=== PATIENT | female | born 1955 | race Caucasian/White ===

== ENCOUNTER → 2017-10-15 10:44 | Outpatient (CLI) | payer BC, SELFPAY | PROVIDERS: Family Provider Internal Medicine; PCP Internal Medicine; Visit Provider Obstetrics & Gynecology | DX: Z12.31 Encounter for screening mammogram for malignant neoplasm of breast (principal) | CPT/HCPCS: 77063; 77067 ==

== ENCOUNTER → 2018-11-19 13:42 | Outpatient (CLI) | payer BC, SELFPAY ==
[2018-10-21 14:23] VITALS: BMI 32.1
--- NOTE | 2018-11-19 13:45 | US_ITS ---
STUDY: THYROID ULTRASOUND REASON FOR EXAM: Female, 63 years old. Nontoxic goiter. TECHNIQUE: Ultrasound evaluation of the thyroid was performed with real-time and static garcia-scale imaging. COMPARISON: July 01, 2016. FINDINGS: RIGHT LOBE: The right lobe of the thyroid gland measures 5.0 x 1.9 x 1.4 cm. There is a homogeneous echotexture. There are multiple small lesions in the thyroid. There is a 0.7 x 0.4 x 0.7 cm spongiform nodule in the posterior aspect of the upper lobe. There are 2 smaller spongiform nodules in the lower pole measuring 0.5 x 0.2 x 0.5 cm and 0.6 x 0.5 x 0.3 cm. LEFT LOBE: The left lobe of the thyroid gland measures 4.4 x 1.6 x 1 point cm. There is a homogeneous echotexture. There are multiple nodules. There is a dictated cystic nodule in the lower pole measuring 0.9 x 0.5 x 0.9 cm. Also in the lower pole is a spongiform hypoechoic nodule measuring 1.2 x 0.4 x 0.6 cm. ISTHMUS: The isthmus measures 0.2 cm. The regional lymph nodes are normal. US/Thyroid IMPRESSION: Multiple bilateral thyroid nodules. These septated cystic structure in the lower pole left thyroid has mildly increased in size. The remainder of the nodules were not noted on the prior study and nodules noted on that study are not seen on the current exam. The most suspicious nodule is characterized by ACR TIRADS classification as a TR 2, not suspicious. Electronically Signed: Toni Grace DO at 20:56 EDT Tel [phone], Service support ,
== END ==
PROVIDERS: Family Provider Internal Medicine; PCP Internal Medicine; Referring Provider Internal Medicine; Visit Provider Internal Medicine
DX: E04.9 Nontoxic goiter, unspecified (principal)
CPT/HCPCS: 76536

== ENCOUNTER → 2018-11-26 16:21 | Outpatient (CLI) | payer BC, SELFPAY ==
[2018-10-21 14:23] VITALS: BMI 32.1
[2018-12-04 12:26] LABS: HPV Reflexed? NOT INDICATED
== END ==
PROVIDERS: Visit Provider Obstetrics & Gynecology
DX: Z12.4 Encounter for screening for malignant neoplasm of cervix (principal)
CPT/HCPCS: 88175; G0145

== ENCOUNTER → 2018-12-07 09:23 | Outpatient (CLI) | payer BC, SELFPAY ==
[2018-10-21 14:23] VITALS: BMI 32.1
[2018-12-01 14:10] VITALS: BMI 32.1
--- NOTE | 2018-12-07 09:25 | BI_ITS ---
MAMMOGRAPHY - BILATERAL DIAGNOSTIC REASON FOR EXAM: Female, 63 years old. PERTINENT HISTORY: Palpable nodular density in the inferior lateral aspect of the left breast TECHNIQUE: Digital examination. Mediolateral oblique (MLO) and craniocaudad (CC) views of both breasts were obtained. CAD: COMPARISON: Previous mammogram dated 10/15/2001 FINDINGS: Breast Composition: Scattered breast parenchyma is noted superimposed upon fatty degeneration of the breast bilaterally. There are no dominant masses or suspicious calcifications. In the inferior medial aspect the left breast the patient palpated 2 nodular densities. These will be further evaluated with a targeted left breast ultrasound. Targeted left breast ultrasound will be dictated on a separate report but showed 2 adjacent benign cyst at about the 3:00 position of the lateral left breast and in the second palpable area of normal breast parenchyma was seen. No other significant abnormalities are identified. No spiculated masses or cluster of calcifications identified. BI/DIAG MAMM W/CAD, BILAT IMPRESSION: A simple cyst was initially identified in the inferior aspect of the left breast, in this otherwise normal bilateral diagnostic mammogram Please see targeted left breast ultrasound report ASSESSMENT CATEGORY: FINAL ASSESSMENT: BI-RAD CATEGORY II (BENIGN FINDING) YEARLY MAMMOGRAPHY RECOMMENDED FOLLOW UP RECOMMENDATION: Ultrasound Recommended. (I) Approximately 10% of breast cancers are not detected by mammography. A normal mammogram should not delay biopsy of a clinically suspicious abnormality. Electronically Signed: Sami Arroyo, at 17:34 EDT Tel , Service support ,
--- NOTE | 2018-12-07 09:27 | US_ITS ---
STUDY: ULTRASOUND BREAST - LEFT REASON FOR EXAM: Female, 63 years old. TECHNIQUE: Axial and longitudinal images of the LEFT breast were performed with a high resolution ultrasound transducer. COMPARISON: Recent mammogram obtained on 12/07/2018 FINDINGS: LEFT Breast: Ultrasound was performed of the medial aspect of the left breast and compared with recent mammogram obtained on 12/07/2018. Initial palpable by the patient represents a subcutaneous lipoma. A 2.5 mm cyst is noted in the inferior lateral aspect of the left breast. This has through transmission. This represents a benign cyst. US/Breast Limited Unilateral IMPRESSION: 1 of the palpable lumps in the left breast represents a subcutaneous lipoma in the other along the left breast represents a tiny, 2.5 mm simple cyst. ASSESSMENT CATEGORY: BIRADS Category 2: Benign. A letter regarding these results will be sent to the patient by the facility within 30 days. Electronically Signed: Sami Arroyo, at 17:37 EDT Tel , Service support ,
== END ==
PROVIDERS: Family Provider Internal Medicine; PCP Internal Medicine; Referring Provider Obstetrics & Gynecology; Visit Provider Obstetrics & Gynecology
DX: N63.22 Unspecified lump in the left breast, upper inner quadrant (principal)
CPT/HCPCS: 76642; 77062; 77066; G0279

== ENCOUNTER → 2018-12-22 11:32 | Outpatient (CLI) | payer BC, SELFPAY ==
[2018-12-15 14:02] VITALS: BMI 32.1
--- NOTE | 2018-12-22 12:15 | EKG12_ITS ---
Test Reason : ROUTINE,HTN Blood Pressure : / mmHG Vent. Rate : 070 BPM Atrial Rate : 070 BPM P-R Int : 154 ms QRS Dur : 084 ms QT Int : 414 ms P-R-T Axes : 059 000 049 degrees QTc Int : 447 ms Normal sinus rhythm Normal ECG Confirmed by INA URIBE, KATIE ([id number]), book editor DAGOBERTO JONES ([id number]) on 12/25/2018 10:47:32 AM Referred By: Denise Raphael Confirmed By:KATIE BUCKLEY MD
[2018-12-22 12:51] LABS: Absolute Lymphocyte Count 1.79 X10^3/uL (0.83-4.51); Absolute Neutrophil Count 6.1 X10^3/uL (2.0-7.7); Basophil# 0.03 X10^3/uL; Basophil% 0.4 % (0-1); Eosinophil# 0.21 X10^3/uL; Eosinophils% 2.5 % (0-5); Hematocrit 39.3 % (37-47); Hemoglobin 12.5 g/dL (12.0-15.0); Lymphocyte # 1.79 X10^3/ul (4.0); Lymphocyte % 20.9 % (19-41); Mean Corp Hgb Conc 31.8 g/dL (32-36); Mean Corpuscular Hgb 27.8 pg (27.0-32.0); Mean Corpuscular Volume 87.3 fL (81-99); Mean Platelet Vol. 9.9 fl (6.2-12.0); Monocyte# 0.41 X10^3/uL; Monocyte% 4.8 % (0-10); NRBC Flagged by Analyzer 0 % (0-5); Neutrophil # 6.09 X10^3/uL (2.7-7.7); Neutrophil % 71.2 % (47-70); Platelet Count 306 K/mm3 (150-450); RBC Distribution Width CV 13.2 % (11.6-14.6); RBC Distribution Width SD 42.1 fl (35.1-43.9); White Blood Count 8.6 K/mm3 (4.4-11.0)
[2018-12-22 13:17] LABS: AST(SGOT) 16 U/L (15-37); Alanine Aminotransfer ALT/SGPT 27 U/L (13-56); Albumin, Serum 3.6 g/dL (3.2-5.0); Alkaline Phosphatase 98 U/L (45-117); Anion Gap 6 (5-15); BUN 21 mg/dL (7-18); BUN/Creat Ratio 21.5 RATIO (10-20); Calcium,Total 9.3 mg/dL (8.5-10.1); Chloride 103 mmol/L (98-107); Cholesterol 181 mg/dL (200); Creatinine, Serum 0.98 mg/dL (0.55-1.02); EST Glomerular Filtration Rate 61 mL/min (>60); Est Glom Filt Rate - Afr Amer 74 mL/min (>60); Globulin 3.6 g/dL (2.2-4.2); Glucose 82 mg/dL (74-106); High Density Lipoprotein 69 mg/dL; Potassium 3.4 mmol/L (3.5-5.1); Protein, Total 7.2 g/dL (6.4-8.2); Sodium Level 139 mmol/L (136-145); Triglycerides 69 mg/dL; Very Low Density Lipoprotein 14 mg/dL (5-40)
[2018-12-22 14:08] LABS: T4 Total, Thyroxin 11.5 ug/dL (4.8-13.9); Thyroid Stim Hormone (TSH) 1.46 uIU/mL (0.358-3.74)
== END ==
LOC: BIMLAB 11:32 → CVS 12:14
PROVIDERS: Surgery; Family Provider Internal Medicine; PCP Internal Medicine; Referring Provider Internal Medicine; Visit Provider Internal Medicine
DX: I10 Essential (primary) hypertension (principal); E79.0 Hyperuricemia without signs of inflammatory arthritis and tophaceous disease; E04.2 Nontoxic multinodular goiter
CPT/HCPCS: 80053; 80061; 84436; 84443; 84550; 85025; 93005

== ENCOUNTER → 2019-08-23 13:30 | Outpatient (CLI) | payer BC, SELFPAY ==
[2019-08-12 11:25] VITALS: BMI 32.1
--- NOTE | 2019-08-23 13:32 | BI_ITS ---
MAMMOGRAPHY - BILATERAL DIAGNOSTIC REASON FOR EXAM: Female, 64 years old. Nipple discharge PERTINENT HISTORY: Mother, maternal and paternal aunts with breast cancer TECHNIQUE: Digital examination. Mediolateral oblique (MLO) and craniocaudad (CC) views of both breasts were obtained along with 3-D tomosynthesis. CAD: CAD was performed on this study. COMPARISON: 12/07/2018 FINDINGS: Breast Composition: There are scattered areas of fibroglandular density. There are no dominant masses or suspicious calcifications. No other significant abnormalities are identified. However, because the patient complains of palpable nipple discharge in the right breast further evaluation of the right breast with ultrasound in the retroareolar region is recommended. BI/DIAG MAMM W/CAD, BILAT IMPRESSION: Further ultrasonographic evaluation recommended, as described above. Recall Side: Right Breast ASSESSMENT CATEGORY: BIRADS Category 0: Incomplete. Need additional imaging evaluation. A letter regarding these results will be sent to the patient by the facility within 30 days. FOLLOW UP RECOMMENDATION: Ultrasound Recommended. (I) Approximately 10% of breast cancers are not detected by mammography. A normal mammogram should not delay biopsy of a clinically suspicious abnormality. Electronically Signed: Bal Perez MD at 15:41 EDT , Service support ,
--- NOTE | 2019-08-23 13:32 | US_ITS ---
STUDY: ULTRASOUND BREAST - RIGHT REASON FOR EXAM: Female, 64 years old. Nipple discharge TECHNIQUE: Axial and longitudinal images of the RIGHT breast were performed with a high resolution ultrasound transducer. # OF IMAGES: 25 COMPARISON: None. FINDINGS: RIGHT Breast: Sonographic evaluation of the right breast, in the area of concern shows only normal dense fibroglandular tissue. There is no suspicious shadowing solid lesion, architectural distortion or clustered calcifications. US/Breast Limited Unilateral IMPRESSION: No suspicious sonographic findings ASSESSMENT CATEGORY: BIRADS Category 1: Negative. A letter regarding these results will be sent to the patient by the facility within 30 days. Electronically Signed: Bal Perez MD at 14:52 EDT , Service support ,
== END ==
PROVIDERS: PCP Internal Medicine; Referring Provider Obstetrics & Gynecology; Visit Provider Obstetrics & Gynecology
DX: N63.0 Unspecified lump in unspecified breast (principal)
CPT/HCPCS: 76642; 77062; 77066; G0279

== ENCOUNTER 2019-10-22 08:56 | Day surgery (SDC) | payer BC, SELFPAY ==
[2019-08-26 10:14] VITALS: BMI 31.9
[2019-10-04 05:54] VITALS: BMI 32.7
--- NOTE | 2019-10-15 12:01 | EKG12_ITS ---
Test Reason : PREOP Blood Pressure : / mmHG Vent. Rate : 063 BPM Atrial Rate : 063 BPM P-R Int : 156 ms QRS Dur : 078 ms QT Int : 410 ms P-R-T Axes : 052 -02 053 degrees QTc Int : 419 ms Normal sinus rhythm Normal ECG Confirmed by MARCELINO CHEW ([id number]), editor dictionary TIEN RICE ([id number]) on 10/18/2019 2:22:52 PM Referred By: Tulio Loza Confirmed By:MARCELINO CHEW
[2019-10-15 12:56] LABS: Hematocrit 39.4 % (37-47); Hemoglobin 12.4 g/dL (12.0-15.0); Mean Corp Hgb Conc 31.5 g/dL (32-36); Mean Corpuscular Hgb 27.1 pg (27.0-32.0); Mean Platelet Vol. 9.8 fl (6.2-12.0); Platelet Count 348 K/mm3 (150-450); RBC Distribution Width SD 40.5 fl (35.1-43.9); Red Blood Count 4.58 M/mm3 (4.2-5.4); White Blood Count 8.9 K/mm3 (4.4-11.0)
[2019-10-15 13:17] LABS: Anion Gap 7 (5-15); BUN 22 mg/dL (7-18); BUN/Creat Ratio 20.8 RATIO (10-20); Calcium,Total 9.1 mg/dL (8.5-10.1); Chloride 101 mmol/L (98-107); Creatinine, Serum 1.06 mg/dL (0.55-1.02); EST Glomerular Filtration Rate 55 mL/min (>60); Est Glom Filt Rate - Afr Amer 67 mL/min (>60); Glucose 84 mg/dL (74-106); Potassium 3.3 mmol/L (3.5-5.1); Sodium Level 139 mmol/L (136-145)
[2019-10-22] VITALS (7 sets, daily range): BP systolic 125–138; BP diastolic 63–81; PULSE 70–86; RESP 16–18; TEMP 36.1–36.4; O2SAT 97–100; BMI 32.9
--- NOTE | 2019-10-22 | BRBX_PTH ---
PATIENT: ANA SELF [place]: [facility] [place] [facility] [place][id number] AGE/SX: 64/F ROOM: RE10/22/[address]: Dr. Tulio Loza MD : 1955 BED: DIS: 10/22/2019 SPEC #: [id number] RECD: 10/22/19 12:10 STATUS: MARJAN RENeftali #: [id number] ZEYAD: 10/22/19 00:[address]: Tulio Loza DEPT: SURGICAL PATHOLOGY RECD BY: Aston Reid ENTERED: 10/22/19 12:10 SP TYPE: BREAST BX OTHR DR: Dr. Denise Raphael MD Tissues: Right breast, NOS Procedures: Surgery Specimen Level V HEADER OPERATION: Breast ductal exploration with excisional biopsy PRE-OP DIAGNOSIS: Nipple discharge, lipoma of breast TISSUE SUBMITTED: Right breast tissue MICROSCOPIC DIAGNOSIS Right breast tissue, ductal exploration with excisional biopsy: Intraductal papilloma. Focal florid intraductal hyperplasia without atypia. Negative for malignancy. ROMA:rosemary 10/27/19 COMMENT Case has been reviewed in consultation with Dr. Macias who concurs with the above diagnosis. IDC:AM MICROSCOPIC DESCRIPTION Slides are reviewed. GROSS DESCRIPTION Received in fixative is one container labeled with the patient's name and designated right breast tissue. The specimen consists of a piece of fibroadipose tissue measuring 5 x 2.5 x 1.5 cm. The specimen is not further oriented. The specimen is inked, serially sectioned and reveal yellow adipose cut surfaces mixed with scant fibrous areas. Dye Beck Reel Operator sections are submitted in four cassettes. / ROMA:rosemary 10/25/19 The rest of the specimen is submitted in five more cassettes, 5-9. / ROMA:rosemary 10/26/19 TC:1 CPT: 54525
[2019-10-22 09:28] LABS: Potassium 3.7 mmol/L (3.5-5.1)
[2019-10-22] MEDS: Lactated Ringers 1,000 ML 100 ML IV (09:46)
--- NOTE | 2019-10-22 10:14 | HP.PCM_ITS ---
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 Is patient in pain?: No Allergies tramadol Adverse Reaction (Severe, Verified 10/04/19 13:18) Headache omeprazole Adverse Reaction (Intermediate, Verified 10/04/19 13:18) Nausea Medications chromium 200 mcg tablet 600 mcg PO DAILY tab 11/18/17 [History Confirmed 10/04/19] timolol 0.5 %-dorzolamide 2 %-latanprost 0.005 % (PF) eye drops drp OPHTHALMIC 11/18/17 [History Confirmed 10/04/19] vitamin B complex 1 cap PO DAILY 11/18/17 [History Confirmed 10/04/19] triamterene 37.5 mg-hydrochlorothiazide 25 mg capsule 1 cap PO DAILY #90 cap 05/10/19 [Rx Confirmed 10/04/19] esomeprazole magnesium 20 mg capsule,delayed release 20 mg PO DAILY #90 cap 08/12/19 [Rx Confirmed 10/04/19] naproxen 500 mg tablet 500 mg PO BID PRN #90 tab 08/12/19 [Rx Confirmed 10/04/19] ascorbic acid (vitamin C) 500 mg capsule 500 mg PO QDAY cap 08/26/19 [History Confirmed 10/04/19] estradiol 0.5 mg tablet 0.5 mg PO DAILY 08/26/19 [History Confirmed 10/04/19] Is last menstrual period known: No Post menopausal: Yes Patient : No PFSH Medical History Multiple thyroid nodules (Acute) Lipoma of breast (Acute) Cyst of breast (Acute) GERD (gastroesophageal reflux disease) (Chronic) Migraines (Chronic) Degenerative disc disease (Chronic) Hiatal hernia (Chronic) Menieres disease (Chronic) Thyroid nodule (Chronic) Anemia (Chronic) Right foot pain (Chronic) Goiter (Chronic) Fibromyalgia (Chronic) Glaucoma (Chronic) Hypertension (Chronic) Surgical History History of cholecystectomy (Acute) History of foot surgery (Acute) History of hysterectomy (Acute) History of rotator cuff surgery (Acute) History of tubal ligation (Acute) Family History Father Hypertension Heart disease Glaucoma Diabetes Brother Diabetes Myocardial infarction Mother Breast cancer Diabetes Hypertension Grandfather Myocardial infarction Grandfather Myocardial infarction Social History (Updated 10/04/19 @ 13:[address] Tulio Loza MD) Smoking Status: Never smoker alcohol intake: never substance use type: does not use what type of physical activity do you participate in: walking HPI HPI HPI: ANA SELF, is a 64 F who presents to the office today for ongoing discussion regarding right nipple discharge. My previous office notes reflect the following. Intake Visit Reasons: RIGHT BREAST DISCHARGE/ MAMM 08/22 [facility] Chief Complaint: Chronic diarrhea , Phone only visit Allergies tramadol Adverse Reaction (Severe, Verified 08/26/19 10:14) Headache omeprazole Adverse Reaction (Intermediate, Verified 08/26/19 10:14) Nausea Medications chromium 200 mcg tablet 600 mcg PO DAILY tab 11/18/17 [History Confirmed 08/26/19] timolol 0.5 %-dorzolamide 2 %-latanprost 0.005 % (PF) eye drops drp OPHTHALMIC 11/18/17 [History Confirmed 08/26/19] vitamin B complex 1 cap PO DAILY 11/18/17 [History Confirmed 08/26/19] triamterene 37.5 mg-hydrochlorothiazide 25 mg capsule 1 cap PO DAILY #90 cap 05/10/19 [Rx Confirmed 08/26/19] esomeprazole magnesium 20 mg capsule,delayed release 20 mg PO DAILY #90 cap 08/12/19 [Rx Confirmed 08/26/19] naproxen 500 mg tablet 500 mg PO BID PRN #90 tab 08/12/19 [Rx Confirmed 08/26/19] ascorbic acid (vitamin C) 500 mg capsule 500 mg PO QDAY cap 08/26/19 [History Confirmed 08/26/19] estradiol 0.5 mg tablet 0.5 mg PO DAILY 08/26/19 [History Confirmed 08/26/19] [facility] Medical History Multiple thyroid nodules (Acute) Lipoma of breast (Acute) Cyst of breast (Acute) GERD (gastroesophageal reflux disease) (Chronic) Migraines (Chronic) Degenerative disc disease (Chronic) Hiatal hernia (Chronic) Menieres disease (Chronic) Thyroid nodule (Chronic) Anemia (Chronic) Right foot pain (Chronic) Goiter (Chronic) Fibromyalgia (Chronic) Glaucoma (Chronic) Hypertension (Chronic) Surgical History History of cholecystectomy (Acute) History of foot surgery (Acute) History of hysterectomy (Acute) History of rotator cuff surgery (Acute) History of tubal ligation (Acute) Family History Father Hypertension Heart disease Glaucoma Diabetes Brother Diabetes Myocardial infarction Mother Breast cancer Diabetes Hypertension Grandfather Myocardial infarction Grandfather Myocardial infarction Social History (Updated 08/26/19 @ 10:[address] Tulio Loza MD) Smoking Status: Never smoker alcohol intake: never substance use type: does not use what type of physical activity do you participate in: walking HPI HPI HPI: ANA SELF, is a 64 F who presents to the office today for My previous notes of December 15, 2018 reflect the following: The patient also on breast examination has had a long-term history of a medial left breast mass. Clinically and on imaging this is very much consistent with a subcutaneous lipoma. It is asymptomatic no treatment required. On current ultrasound imaging there is a diminutive 2.5 mm lower outer left breast cyst. No treatment indicated. Routine screening annual mammogram recommended A final note is that the patient has a family history with a first-degree relative with breast cancer i.e. her mother. The patient remains on estrogen replacement therapy and states that she is dependent upon this because of emotional health issues. I recommend genetic counseling to evaluate the risk benefit and options. On this occasion the patient presents with a several week history of intermittent clear discharge from her right nipple. She will awaken at night with crusty nests on her clothing on the right. She has not noticed any blood. There is been no tenderness. As noted below her mammogram and ultrasound imaging were unremarkable. [facility] Imaging Services [address] [place] [address] DIAG MAMM W/CAD, BILAT MR#: [id number] Name: ANA SELF [facility] #:[id number] : 1955F 64 From: Alexi Perez MD PCP:Dr. Denise Raphael MD Status:REG CLI Study:DIAG MAMM W/CAD, BILAT Date of Exam:08/23/19 Exam#[id number] Ordering Dr: Sami Law MD MAMMOGRAPHY - BILATERAL DIAGNOSTIC REASON FOR EXAM: Female, 64 years old. Nipple discharge PERTINENT HISTORY: Mother, maternal and paternal aunts with breast cancer TECHNIQUE: Digital examination. Mediolateral oblique (MLO) and craniocaudad (CC) views of both breasts were obtained along with 3-D tomosynthesis. CAD: CAD was performed on this study. COMPARISON: 12/07/2018 FINDINGS: Breast Composition: There are scattered areas of fibroglandular density. There are no dominant masses or suspicious calcifications. No other significant abnormalities are identified. However, because the patient complains of palpable nipple discharge in the right breast further evaluation of the right breast with ultrasound in the retroareolar region is recommended. BI/DIAG MAMM W/CAD, BILAT IMPRESSION: Further ultrasonographic evaluation recommended, as described above. Recall Side: Right Breast ASSESSMENT CATEGORY: BIRADS Category 0: Incomplete. Need additional imaging evaluation. A letter regarding these results will be sent to the patient by the facility within 30 days. FOLLOW UP RECOMMENDATION: Ultrasound Recommended. (I) Approximately 10% of breast cancers are not detected by mammography. A normal mammogram should not delay biopsy of a clinically suspicious abnormality. Electronically Signed: Bal Perez MD at 15:41 EDT , Service support , [facility] Imaging Services [address] [place] [address] Breast Limited Unilateral MR#: [id number] Name: ANA SELF [facility] #:[id number] : 1955F 64 From: Alexi Perez MD PCP:Dr. Denise Raphael MD Status:REG CLI Study:Breast Limited Unilateral Date of Exam:08/23/19 Exam#[id number] Ordering Dr: Sami Law MD STUDY: ULTRASOUND BREAST - RIGHT REASON FOR EXAM: Female, 64 years old. Nipple discharge TECHNIQUE: Axial and longitudinal images of the RIGHT breast were performed with a high resolution ultrasound transducer. # OF IMAGES: 25 COMPARISON: None. FINDINGS: RIGHT Breast: Sonographic evaluation of the right breast, in the area of concern shows only normal dense fibroglandular tissue. There is no suspicious shadowing solid lesion, architectural distortion or clustered calcifications. US/Breast Limited Unilateral IMPRESSION: No suspicious sonographic findings ASSESSMENT CATEGORY: BIRADS Category 1: Negative. A letter regarding these results will be sent to the patient by the facility within 30 days. Electronically Signed: Bal Perez MD at 14:52 EDT , Service support , HPI HPI HPI: ANA SELF, is a 64 F who presents to the office today for Exam Const General: cooperative, comfortable, no acute distress Orientation: alert, awake HENMT Head: normal to inspection Chest Other: Right breast: No focal mass. No axillary or clavicular adenopathy, clear right nipple discharge emanating from 1 o'clock position Left breast: Rubbery fibrous mass inner left breast 10 o'clock position. No distortion. No retraction. No nipple discharge. No axillary or clavicular adenopathy Resp Effort & Inspection: normal respiratory effort Auscultation: clear to auscultation bilaterally Cardio Rate: regular rate Rhythm: regular rhythm GI Palpation: no hepatosplenomegaly Neuro Cognition: normal cognition Extrem General: no calf tenderness Assessment & Plan Problems 1. Nipple discharge N64.52 2. Lipoma of breast D17.1 Plan Suspected chronic lipoma in her left breast. No clinical changes and no treatment recommended New onset clear right nipple discharge. Unremarkable right mammogram and ultrasound. I proposed with the patient a right breast ductal exploration with excisional biopsy and in detail I discussed the technique, benefit, risk, alternatives. The patient states that her has upcoming cardiac surgery. She would like to delay a period of time until he has a chance to recover. We did discuss the risks and benefit of that decision. My current clinical impression is likely an intraductal papilloma. We will send the patient a recall letter in 2 months. She is aware that I would propose that she would proceed with surgery within 6 weeks to 3 months. I appreciate the opportunity of assisting with her surgical care. Cc: Dr. Sami Law and Dr.Efewongbe Donavon Loza M.D., F.A.C.S. HPI HPI HPI: ANA SELF, is a 64 F who presents to the office today for ROS General General: Yes fatigue; no weight change, appetite, colon cancer, breast cancer or weakness HEENT HEENT: Yes difficulty swallowing; no eye injury, eye surgery, swollen glands or hoarseness Endo Endocrine: No thyroid disease, diabetes mellitus, thyroid cancer, Hair loss, heat intolerance or cold intolerance Skin Skin: No rash or changing moles Breast Breast: No left breast lump, right breast lump, nipple discharge, breast pain, abnormal mammogram, abnormal US or breast enlargement Musc Musculoskeletal: Yes back problems and arthritis; no rheumatoid arthritis, gout or joint pain Cardio Cardiovascular: Yes high blood pressure; no murmur, pacemaker, heart disease, atrial fibrillation, heart attack, heart stent, palpitations, shortness of breat with exertion or chest pain Psych Psychiatric: No depression, anxiety or hearing voices Resp Respiratory: No shortness of breath, No sleep apnea, No cough, No COPD, No asthma, No emphysema, No wheezing Gastro Gastrointestinal: No abdominal pain, No nausea or vomiting, No diarrhea, No constipation, No blood in stool, No acid reflux, No hemorrhoids, No ulcers, No gallbladder problem, No black,tarry stools Baudilio Hematologic: No blood thinners, No blood disorders, No bleeding, No anemia, No blood clots Neuro Neurologic: No weakness Exam Chest Breast Palpation: No nipple discharge Cardio Heart Sounds: no murmurs Assessment & Plan Problems 1. Nipple discharge N64.52 Plan Ongoing right breast nipple discharge. The patient states her has successfully undergone heart surgery and is now stable allowing her to proceed with her surgical intervention. Her health has remained constant. Physical exam unchanged. I again have proposed for her a right breast ductal exploration with excisional biopsy. She is aware of the technique, benefit, risk, alternatives. She has had an opportunity to ask and have questions answered. She is aware of the Covid-19 pandemic and that the [facility] is currently reporting a low local incidence. We will proceed at the time of her discretion. Copy: Dr. Denise Loza M.D., F.A.C.S. Coding Level of Care Code Off vis,est,level 2 Diagnoses Nipple discharge N64.52 I have re-examined the patient. There are no clinical changes since date of exam. Procedure Criteria Procedure Type: Elective COVID Risk Discussion: The surgeon/proceduralist and patient have discussed in detail the risk of exposure to and/or potential harm posed by the COVID-19 virus with having a surgery/procedure at this time versus the risk of delaying the surgery/procedure. It is not possible to know either the risk of delaying the surgery or procedure or chance of getting an infection with perfect accuracy, but a joint decision was made between the patient and the surgeon/proceduralist to proceed at this time with the scheduled surgery/procedure as indicated on the consent form.
--- NOTE | 2019-10-22 10:30 | PCM.DC.BS ---
Discharge Diet: No Restrictions Discharge Activity: May Not Drive - for 2-3 days or while taking narcotic pain meds. May shower in (days): 1 Lifting Restrictions: 10 pounds for 1 week. Call your doctor if your incision/area has: Continuous Slow Oozing, Sudden Increased Bleeding Call your doctor if you observe: Fever of 101 or Higher Suture Line Care: Avoid Pulling/Pushing, Avoid Pinching/Bending Remove Dressing in (days):: 1 - Remove bulky dressing tomorrow. May leave any opsite dressing for 3-4 days[address] Keep dressing in place until your follow-up appointment. Additional Dressing/Incision Instructions:: Remove bulky dressing tomorrow. May leave any opsite dressing for 3-4 days. The surgical glue or Steri-Strips can remain in place for 1 week Allergies/Adverse Reactions: Allergies tramadol Adverse Reaction (Severe, Verified 10/22/19 09:18) Headache omeprazole Adverse Reaction (Intermediate, Verified 10/22/19 09:18) Nausea Medications to take at Discharge chromium 200 mcg tablet 600 mcg PO DAILY tab 11/18/17 timolol 0.5 %-dorzolamide 2 %-latanprost 0.005 % (PF) eye drops 1 drp OPHTHALMIC QHS 11/18/17 vitamin B complex 1 cap PO DAILY 11/18/17 naproxen 500 mg tablet 500 mg PO BID PRN #90 tab 08/12/19 ascorbic acid (vitamin C) 500 mg capsule 500 mg PO QDAY cap 08/26/19 estradiol 0.5 mg tablet 0.5 mg PO DAILY 08/26/19 Calcium Carb/D3/Magnesium/Zinc [Gawjyqi-Bju-Edjn-Vit D Tablet] 1 ea PO DAILY 10/15/19 Esomeprazole Magnesium 20 mg PO DAILY 10/15/19 Triamterene/Hydrochlorothiazid [Triamterene-Hctz 37.5-25 mg Cp] 1 cap PO DAILY 10/15/19 potassium chloride 20 mEq tablet,extended release 20 meq PO BID #14 tab 10/15/19 Hydrocodone Bitart/Apap 5-325 [[place] 5MG-325MG] 1 tablet PO Q6H PRN PRN 2 Days #6 tablet 10/22/19 The following prescriptions were given: Hydrocodone Bitart/Apap 5-325 [[place] 5MG-325MG] 1 tablet PO Q6H PRN PRN 2 Days #6 tablet PRN Reason: Pain Transmission Status: Received by [facility]1955 [facility] Primary Care Physician: Denise Raphael MD [Primary Care Provider] - Please Follow Up With: Tulio Loza MD When: Appt. 10 days; [phone]
[2019-10-22] MEDS: Cefazolin 2 GM in 0.9% Normal Saline 100 ML IV (10:37)
[2019-10-22] MEDS: Bupivacaine Mpf 0.5% 30 ML VIAL (11:00)
--- NOTE | 2019-10-22 11:08 | PCM.OPRPT ---
Problem List (1) Nipple discharge Status: Acute Report of Operation Date of Procedure: 10/22/19 Pre-Operative Diagnosis: Right breast nipple discharge Post-Operative Diagnosis: Same Surgery/Procedure Performed:: Ductal exploration right breast with excisional biopsy Description of Surgical Findings:: Timeout and informed consent was obtained. 64-year-old female was taken to the operating placement table underwent general anesthesia. The right breast was sterilely prepped and draped. Inspection revealed a small amount of light greenish drainage seemingly emanating from the central nipple and with lacrimal duct probing extended toward the 1 to 2 o'clock position. A curvilinear circumareolar incision was made from 1:00 to 3:00. Sharp dissection performed retroareolar Brett. Based upon the localization of the lacrimal duct probe a cylinder of breast tissue was excised deep to the areola. There was no evidence of visualized or palpable mass. The specimen was resected. Hemostasis was intact. There was no residual palpable visual defect. The deep breast tissue approximated up to 3-0 Vicryl. The skin edges were approximated with interrupted 4 Monocryl subdermal stitches. The harpreet-incisional areas anesthetized with 30 cc of 0.5% Marcaine. Steri-Strips Telfa OpSite bulky dry dressings applied. Sponge and instrument and needle counts reported the surgery to correct. Blood loss minimal. Specimens right breast tissue. Blood loss minimal. Drains none. Tulio Loza M.D., F.A.C.S. Type of Anesthesia:: General Anesthesiologist: Andrew Hilario
--- NOTE | 2019-10-22 11:46 | EKG12_ITS ---
Test Reason : CP POST OP Blood Pressure : / mmHG Vent. Rate : 076 BPM Atrial Rate : 076 BPM P-R Int : 154 ms QRS Dur : 080 ms QT Int : 390 ms P-R-T Axes : 069 015 073 degrees QTc Int : 438 ms Normal sinus rhythm Normal ECG Confirmed by ARISTIDES URIBE, MARGAUX ([id number]), commercial production editor SVETLANA ABBOTT ([id number]) on 10/27/2019 1:19:03 PM Referred By: Tulio Loza Confirmed By:MARGAUX IRVING MD
--- NOTE | 2019-10-22 12:08 | SUR.PHASEI ---
pt was complaining of right breast pain. gave 4mg morphine, pt started to complain of chest pain. States pain is right in the middle, rates it a 5 on 0-10 scale and states it feels like pressure. Does not radiate. Also states that it feels like she needs to burp. Dr Loza at bedside and ordered and EKG. EKG came back normal sinus rythm. pt states she still has pain in chest. Notified Adriane Gates ordered and given. pt states chest pain is gone. Dr Loza updated.
== END 2019-10-22 13:31 | disposition home or self-care (01) ==
LOC: SDC 08:59 → AC 09:01
PROVIDERS: Anesthesiology; PCP Internal Medicine; Referring Provider Surgery; Visit Provider Surgery
PROC: (CPT 19120; principal; 2019-10-22 10:15)
DX: D24.1 Benign neoplasm of right breast (principal); N64.52 Nipple discharge; I10 Essential (primary) hypertension; E04.1 Nontoxic single thyroid nodule; H40.9 Unspecified glaucoma; K21.9 Gastro-esophageal reflux disease without esophagitis; K44.9 Diaphragmatic hernia without obstruction or gangrene; M79.7 Fibromyalgia; Z78.0 Asymptomatic menopausal state; Z79.890 Hormone replacement therapy; Z79.899 Other long term (current) drug therapy; Z80.3 Family history of malignant neoplasm of breast
CPT/HCPCS: 00400; 19120; 36415; 80048; 84132; 85027; 87635; 88305; 88307; 93005; J7120; J2405; U0003

== ENCOUNTER → 2019-12-13 16:07 | Outpatient (CLI) | payer BC, SELFPAY ==
[2019-12-13 15:16] VITALS: BMI 32.9
[2019-12-13 17:49] LABS: ALB/GLOB Ratio 1.1 RATIO (0.9-2.4); AST(SGOT) 21 U/L (15-37); Alanine Aminotransfer ALT/SGPT 31 U/L (13-56); Alkaline Phosphatase 111 U/L (45-117); Anion Gap 5 (5-15); BUN 20 mg/dL (7-18); BUN/Creat Ratio 16.8 RATIO (10-20); Calcium,Total 9.4 mg/dL (8.5-10.1); Chloride 98 mmol/L (98-107); Cholesterol 189 mg/dL (200); Creatinine, Serum 1.19 mg/dL (0.55-1.02); EST Glomerular Filtration Rate 48 mL/min (>60); Est Glom Filt Rate - Afr Amer 58 mL/min (>60); Globulin 3.7 g/dL (2.2-4.2); Glucose 89 mg/dL (74-106); High Density Lipoprotein 69 mg/dL; Potassium 3.4 mmol/L (3.5-5.1); Protein, Total 7.7 g/dL (6.4-8.2); Sodium Level 134 mmol/L (136-145); Thyroid Stim Hormone (TSH) 1.83 uIU/mL (0.358-3.74); Triglycerides 133 mg/dL; Very Low Density Lipoprotein 27 mg/dL (5-40)
== END ==
PROVIDERS: PCP Internal Medicine; Referring Provider Internal Medicine; Visit Provider Internal Medicine
DX: I10 Essential (primary) hypertension (principal); Z13.29 Encounter for screening for other suspected endocrine disorder
CPT/HCPCS: 36415; 80053; 80061; 84443

== ENCOUNTER → 2019-12-20 15:23 | Outpatient (CLI) | payer BC, SELFPAY ==
[2019-10-22 09:28] VITALS: BMI 32.9
[2019-12-13 15:16] VITALS: BMI 32.9
--- NOTE | 2019-12-20 15:24 | US_ITS ---
STUDY: THYROID ULTRASOUND REASON FOR EXAM: Female, 64 years old. NODULES TECHNIQUE: Ultrasound evaluation of the thyroid was performed with real-time and static garcia-scale imaging. COMPARISON: Comparison is made with prior examination of 11/19/2018. FINDINGS: RIGHT LOBE: The right lobe of the thyroid gland measures 4.5 cm x 1.8 cm x 1.5 cm. There is a homogeneous echotexture. Once again, 3 nodules are seen in the right lobe. There is a solid/cystic nodule measuring 8 mm x 6 mm x 4 mm as well as a 6 mm x 5 mm x 3 mm solid cystic nodule. These are unchanged. There is also evidence of a 5 mm x 6 mm x 4 mm cystic nodule. LEFT LOBE: The left lobe of the thyroid gland is enlarged and measures 5.2 size by 1.6 times by 1.6 cm. There is a homogeneous echotexture. Once again, multiple cystic and solid/cystic nodules are seen. The largest measures 1 cm x 1.1 cm x 0.7 cm. This is in the lower pole. ISTHMUS: The isthmus measures 3 mm. The regional lymph nodes are normal. US/Thyroid IMPRESSION: Stable bilateral thyroid nodules. Mild enlargement of the left lobe of the thyroid. Electronically Signed: Alexandro Peña, at 14:46 EDT , Service support ,
== END ==
PROVIDERS: PCP Internal Medicine; Referring Provider Surgery; Visit Provider Surgery
DX: E04.1 Nontoxic single thyroid nodule (principal)
CPT/HCPCS: 76536

== ENCOUNTER → 2020-01-17 16:24 | Outpatient (CLI) | payer BC, SELFPAY ==
[2019-12-23 12:49] VITALS: BMI 32.6
--- NOTE | 2020-01-17 16:27 | US_ITS ---
STUDY: SUPERFICIAL ULTRASOUND - RIGHT WRIST REASON FOR EXAM: Female, 64 years old. RIGHT POSTERIOR WRIST LUMP , PAINFUL X 2 MONTHS TECHNIQUE: A superficial ultrasound was performed with real-time and static garcia-scale imaging. COMPARISON: None. FINDINGS: There is a nodule measuring 1.1 x 0.8 x 0.4 cm which appears solid with mixed anechoic to hypoechoic density. There is mild peripheral blood flow observed. Etiology is indeterminate however this may represent a ganglion cyst. MRI would be helpful for further assessment if clinically warranted US/Ext Non Vasc Limited/Soft Tiss IMPRESSION: Soft tissue nodule measuring 1.1 x 0.8 x 0.4 cm most likely representing ganglion cyst. MRI would be useful for further assessment if indicated Electronically Signed: Po Doty MD at 23:00 EST , Service support ,
== END ==
PROVIDERS: PCP Internal Medicine; Referring Provider Orthopaedic Surgery; Visit Provider Orthopaedic Surgery
DX: M25.731 Osteophyte, right wrist (principal); M06.331 Rheumatoid nodule, right wrist
CPT/HCPCS: 76882

== ENCOUNTER → 2020-01-22 07:55 | Outpatient (CLI) | payer BC, SELFPAY ==
[2019-12-23 12:49] VITALS: BMI 32.6
--- NOTE | 2020-01-22 07:57 | MRI_ITS ---
STUDY: MRI RIGHT WRIST WITHOUT CONTRAST REASON FOR EXAM: Right wrist pain, painful lumps, swelling. TECHNIQUE: Standardized fat and water weighted pulse sequences were obtained in all 3 orthogonal planes. COMPARISON: Radiographs 12/23/2019 and ultrasound 01/17/2020. FINDINGS: Normal visualized distal radius. There is a small cyst in the ulnar styloid process (inversion recovery coronal image 12). Normal distal radioulnar articulation (DRUJ). Normal triangular fibrocartilaginous complex (TFCC). There is a small cyst in the radial aspect of the lunate and mild bone edema of the lunate (inversion recovery coronal images 12-14). There is slight bone edema in the proximal pole of the scaphoid (inversion recovery coronal image 13). Normal radiocarpal, intercarpal and midcarpal articulations. Normal pisotriquetral articulation. Normal visualized interosseous scapholunate ligament. There is very mild extensor carpi ulnaris tendinosis and tenosynovitis (inversion recovery axial images 22-24). Normal flexor tendons. Normal carpal tunnel with a normal median nerve. Normal carpometacarpal articulation of the thumb. Normal second through fifth carpometacarpal articulations. There is a small cyst in the ulnar aspect of the head of the fifth metacarpal. There is synovitis at the dorsal aspect of the radiocarpal compartment of the wrist corresponding to the skin marker (inversion recovery axial image 17; T2 sagittal images 13-18). MRI/Upper Ext Joint Only(Routine) IMPRESSION: Synovitis at the dorsal aspect of the radiocarpal compartment of the wrist corresponding to the skin marker. Very mild extensor carpi ulnaris tendinosis and tenosynovitis. Small cyst in the radial aspect of the lunate with mild bone edema of the lunate and slight bone edema in the proximal pole scaphoid. Electronically Signed: Todd Stewart MD at 8:36 EST Tel , Service support ,
== END ==
PROVIDERS: PCP Internal Medicine; Referring Provider Orthopaedic Surgery; Visit Provider Orthopaedic Surgery
DX: M06.331 Rheumatoid nodule, right wrist (principal)
CPT/HCPCS: 73221

== ENCOUNTER 2020-01-25 05:32 | Day surgery (SDC) | payer BC, SELFPAY ==
[2019-12-13 15:16] VITALS: BMI 32.9
[2019-12-23 12:49] VITALS: BMI 32.6
[2020-01-24 15:52] LABS: Probe Check PASS; Specimen Processing Control PASS
[2020-01-25] VITALS (8 sets, daily range): BP systolic 115–164; BP diastolic 72–90; PULSE 70–82; RESP 16; TEMP 36.2–36.4; O2SAT 97–100; BMI 33.5
[2020-01-25] MEDS: Lactated Ringers 1,000 ML 100 ML IV (06:02)
--- NOTE | 2020-01-25 06:14 | PCM.HP.STD ---
Problem List (1) Screening for intestinal cancer Status: Acute History of Present Illness Date of Admission: 01/25/20 The patient is a 64 year old F who presents for screening colonoscopy today. Previous 1 was 10 years ago. She has no symptoms. She denies bright red blood per rectum or melena. No abdominal pain. No change in bowel habits. No unexpected weight loss. She has had no exposure to COVID-19 of which she is aware. She is very compliant with mask wearing. Past Medical History Past Medical History (Chronic Problems): Chronic Problems (Last Reviewed 12/23/19 @ 12:55 by Meena Kelley) GERD (gastroesophageal reflux disease) (Chronic) Migraines (Chronic) Degenerative disc disease (Chronic) Hiatal hernia (Chronic) Menieres disease (Chronic) Thyroid nodule (Chronic) Anemia (Chronic) Right foot pain (Chronic) Goiter (Chronic) Fibromyalgia (Chronic) Glaucoma (Chronic) Hypertension (Chronic) Medical History: Medical History (Last Reviewed 12/23/19 @ 12:55 by Meena Kelley) Intraductal papilloma of right breast (Acute) D24.1 Multiple thyroid nodules (Acute) E04.2 Lipoma of breast (Acute) D17.1 Cyst of breast (Acute) N60.09 GERD (gastroesophageal reflux disease) (Chronic) K21.9 Migraines (Chronic) G43.909 Degenerative disc disease (Chronic) Hiatal hernia (Chronic) K44.9 Menieres disease (Chronic) H81.09 Thyroid nodule (Chronic) E04.1 Anemia (Chronic) D64.9 Right foot pain (Chronic) M79.671 Goiter (Chronic) E04.9 Fibromyalgia (Chronic) M79.7 Glaucoma (Chronic) H40.9 Hypertension (Chronic) I10 Allergies amoxicillin [From Augmentin] Allergy (Verified 01/25/20 05:38) Anaphylaxis clavulanic acid [From Augmentin] Allergy (Verified 01/25/20 05:38) Anaphylaxis tramadol Adverse Reaction (Severe, Verified 01/25/20 05:38) Headache omeprazole Adverse Reaction (Intermediate, Verified 01/25/20 05:38) Nausea Home Medications: Ambulatory Orders Medication Instructions Recorded chromium 200 mcg tablet 600 mcg PO DAILY tab 11/18/17 timolol 0.5 %-dorzolamide 2 1 drp OPHTHALMIC QHS 11/18/17 %-latanprost 0.005 % (PF) eye drops vitamin B complex 1 cap PO DAILY 11/18/17 naproxen 500 mg tablet 500 mg PO BID PRN #90 tab 08/12/19 ascorbic acid (vitamin C) 500 mg 500 mg PO QDAY cap 08/26/19 capsule estradiol 0.5 mg tablet 0.5 mg PO DAILY 08/26/19 Calcium Carb/D3/Magnesium/Zinc 1 ea PO DAILY 10/15/19 [Nxbgpyf-Xng-Kcys-Vit D Tablet] Triamterene/Hydrochlorothiazid 1 cap PO DAILY 10/15/19 [Triamterene-Hctz 37.5-25 mg Cp] famotidine 20 mg tablet 20 mg PO DAILY #90 tab 01/21/20 potassium chloride 20 mEq 20 meq PO DAILY #90 tab 01/21/20 tablet,extended release Surgical History: Surgical History (Last Reviewed 12/23/19 @ 12:56 by Meena Kelley) History of breast biopsy Onset Date: ~10/2019 Z98.890 History of cholecystectomy Z90.49 1999 History of foot surgery Z98.890 2017 - Left, 2001 - Rt History of hysterectomy Z90.710 2007 History of rotator cuff surgery Z98.890 2007 Rt History of tubal ligation Z98.51 1979 Surgical History: no surgical history Smoking Status: Never smoker Tobacco Use: Non-smoker Review of Systems Constitutional: Denies: Chills, Fever HEENT: Reports: Hard of Hearing Cardiovascular: Denies: Chest Pain Respiratory: Denies: Cough, Shortness of Breath Gastrointestinal: Denies: Abdominal Pain, Melena Endocrine: Denies: Change in Body Habitus VTE Information - Inpt Only VTE Present on Admission: No - Physical Exam Vitals/I&O's: Vital Signs Temp Pulse Resp BP Pulse Ox 97.4 F L 75 16 132/85 H 97 01/25/20 05:56 01/25/20 05:56 01/25/20 05:56 01/25/20 05:56 01/25/20 05:56 Oxygen Delivery Method Room Air Weight: 177 lb 11.081 oz Body Mass Index (BMI) 33.5 General: Alert, Oriented x3, Cooperative, No apparent distress Oral: Moist Mucosa Lungs: Clear to auscultation, Normal air movement Cardiovascular: Regular rate, Regular Rhythm Abdomen: Soft, Non Tender Extremities: No Calf Tenderness Psych/Mental Status: Normal Affect, Appropriate Laboratory Results 01/24/20 12:20: COVID-19 ([facility]) Negative Current Medications Lactated Ringer's () 1,000 mls @ 100 mls/hr IV .Q10H EDDI Last Admin: 01/25/20 06:02 Dose: 100 mls/hr Documented by: Assessment/Plan All Active Problems (Last Reviewed 12/23/19 @ 12:55 by Meena Kelley) Screening for intestinal cancer (Acute) Intraductal papilloma of right breast (Acute) Nipple discharge (Acute) Sinusitis, acute (Acute) Foreign body in right ear, initial encounter (Acute) Multiple thyroid nodules (Acute) Lipoma of breast (Acute) Cyst of breast (Acute) 64-year-old female who presents via open access for screening colonoscopy. She is aware of the technique, benefit, risk, alternatives. She has had an opportunity to ask and have questions answered. We will proceed as noted. Tulio Loaz M.D., F.A.C.S. Procedure Criteria Procedure Type: Elective COVID Risk Discussion: The surgeon/proceduralist and patient have discussed in detail the risk of exposure to and/or potential harm posed by the COVID-19 virus with having a surgery/procedure at this time versus the risk of delaying the surgery/procedure. It is not possible to know either the risk of delaying the surgery or procedure or chance of getting an infection with perfect accuracy, but a joint decision was made between the patient and the surgeon/proceduralist to proceed at this time with the scheduled surgery/procedure as indicated on the consent form.
--- NOTE | 2020-01-25 06:49 | OP.COLON_ITS ---
Patient Name: Mary Jo Ferreira Procedure Date: 01/25/2020 6:10 AM Date of : 1955 Age: 64 Procedure: Colonoscopy Indications: Screening for colorectal malignant neoplasm Providers: Tulio Loza MD Referring MD: Denise Raphael MD Medicines: Midazolam 4 mg IV, Meperidine 100 mg IV Patient Profile: Last Colonoscopy: 10 years ago. Complications: No immediate complications. Procedure: Pre-Anesthesia Assessment: - Prior to the procedure, a History and Physical was performed, and patient medications and allergies were reviewed. The patient's tolerance of previous anesthesia was also reviewed. The risks and benefits of the procedure and the sedation options and risks were discussed with the patient. All questions were answered, and informed consent was obtained. Prior Anticoagulants: The patient has taken no previous anticoagulant or antiplatelet agents. ASA Grade Assessment: II - A patient with mild systemic disease. After reviewing the risks and benefits, the patient was deemed in satisfactory condition to undergo the procedure. After I obtained informed consent, the scope was passed under direct vision. Throughout the procedure, the patient's blood pressure, pulse, and oxygen saturations were monitored continuously. The Colonoscope was introduced through the anus and advanced to the cecum, identified by appendiceal orifice and ileocecal valve. The colonoscopy was performed without difficulty. The patient tolerated the procedure well. The quality of the bowel preparation was excellent. The ileocecal valve and the appendiceal orifice were photographed. Moderate Sedation: Moderate (conscious) sedation was personally administered by the endoscopist. The following parameters were monitored: oxygen saturation, heart rate, blood pressure, and response to care. Total physician intraservice time was 15 minutes. Scope In: 6:31:22 AM Scope Withdrawal Time 0 hours 6 minutes 14 seconds Scope Out: 6:44:36 AM Total Procedure Duration Time 0 hours 13 minutes 14 seconds Findings: Hemorrhoids were found on perianal exam. The colon (entire examined portion) appeared normal. Impression: - Hemorrhoids found on perianal exam. - The entire examined colon is normal. - No specimens collected. Recommendation: - Discharge patient to home. - Resume previous diet. - Continue present medications. - Repeat colonoscopy in 10 years for screening purposes. Procedure Code(s): --- Professional --- 53857, Colonoscopy, flexible; diagnostic, including collection of specimen(s) by brushing or washing, when performed (separate procedure) 50252, 59, Moderate sedation services provided by the same physician or other qualified health care clinician performing the diagnostic or therapeutic service that the sedation supports, requiring the presence of an independent trained observer to assist in the monitoring of the patient's level of consciousness and physiological status; initial 15 minutes of intraservice time, patient age 5 years or older Diagnosis Code(s): --- Professional --- Z12.11, Encounter for screening for malignant neoplasm of colon K64.9, Unspecified hemorrhoids CPT copyright 2017 [employer]. All rights reserved. The codes documented in this report are preliminary and upon otr company truck driver review may be revised to meet current compliance requirements. Tulio Loza MD 01/25/2020 6:48:54 AM This report has been signed electronically. Number of Addenda: 0 Note Initiated On: 01/25/2020 6:10 AM
--- NOTE | 2020-01-25 06:49 | OP.CCLET_ITS ---
01/25/2020 Denise Raphael MD [address] [place] [address] [place] [address] Re : Colonoscopy procedure for Mary Jo Ferreira Dear Dr. Raphael This procedure was performed on Saturday, January 25, 2020. My impressions and recommendations are as follows: Impressions : - Hemorrhoids found on perianal exam. - The entire examined colon is normal. - No specimens collected. Recommendations : - Discharge patient to home. - Resume previous diet. - Continue present medications. - Repeat colonoscopy in 10 years for screening purposes. My findings are described in the full procedure note, which is enclosed. If I can be of further assistance, please feel free to contact me at Doctor phone number(s): Work: . Sincerely, Tulio Loza MD 01/25/2020 6:48:54 AM This report has been signed electronically.
== END 2020-01-25 07:30 | disposition home or self-care (01) ==
LOC: EN 05:34 → AC 05:34
PROVIDERS: PCP Internal Medicine; Referring Provider Internal Medicine; Visit Provider Surgery
PROC: 0DJD8ZZ Inspection of Lower Intestinal Tract, Via Natural or Artificial Opening Endoscopic (ICD-10-PCS; CPT 45378; principal; 2020-01-25 06:25)
DX: Z12.11 Encounter for screening for malignant neoplasm of colon (principal); K64.9 Unspecified hemorrhoids; D24.1 Benign neoplasm of right breast; E04.2 Nontoxic multinodular goiter; H40.9 Unspecified glaucoma; H81.09 Meniere's disease, unspecified ear; I10 Essential (primary) hypertension; K21.9 Gastro-esophageal reflux disease without esophagitis; M79.7 Fibromyalgia; K44.9 Diaphragmatic hernia without obstruction or gangrene; D64.9 Anemia, unspecified; Z79.899 Other long term (current) drug therapy; Z20.828 Contact with and (suspected) exposure to other viral communicable diseases
CPT/HCPCS: 45378; 87635; 99152; 99153; C9803; J7120; U0002

== ENCOUNTER → 2020-02-18 15:12 | Outpatient (CLI) | payer BC, SELFPAY ==
[2020-02-18 18:02] LABS: Anion Gap 7 (5-15); BUN 26 mg/dL (7-18); BUN/Creat Ratio 23.4 RATIO (10-20); Calcium,Total 9.3 mg/dL (8.5-10.1); Chloride 101 mmol/L (98-107); Creatinine, Serum 1.11 mg/dL (0.55-1.02); EST Glomerular Filtration Rate 52 mL/min (>60); Est Glom Filt Rate - Afr Amer 63 mL/min (>60); Glucose 84 mg/dL (74-106); Potassium 3.5 mmol/L (3.5-5.1); Sodium Level 138 mmol/L (136-145)
== END ==
PROVIDERS: PCP Internal Medicine; Referring Provider Internal Medicine; Visit Provider Internal Medicine
DX: E87.6 Hypokalemia (principal)
CPT/HCPCS: 36415; 80048

== ENCOUNTER → 2020-12-04 11:36 | Outpatient (CLI) | payer MEDICARE, SELFPAY ==
[2020-12-04 15:18] LABS: Absolute Lymphocyte Count 2.02 X10^3/uL (0.83-4.51); Absolute Neutrophil Count 5.9 X10^3/uL (2.0-7.7); Basophil# 0.05 X10^3/uL; Basophil% 0.6 % (0-1); Eosinophil# 0.19 X10^3/uL; Eosinophils% 2.2 % (0-5); Hematocrit 41.6 % (37-47); Hemoglobin 13.2 g/dL (12.0-15.0); Lymphocyte # 2.02 X10^3/ul (0.83-4.51); Lymphocyte % 23.4 % (19-41); Mean Corp Hgb Conc 31.7 g/dL (32-36); Mean Corpuscular Hgb 27.6 pg (27.0-32.0); Mean Platelet Vol. 9.7 fl (6.2-12.0); Monocyte# 0.41 X10^3/uL; Monocyte% 4.7 % (0-10); NRBC Flagged by Analyzer 0 % (0-5); Neutrophil # 5.94 X10^3/uL (2.7-7.7); Neutrophil % 68.8 % (47-70); Platelet Count 387 K/mm3 (150-450); RBC Distribution Width CV 13.3 % (11.6-14.6); RBC Distribution Width SD 42.8 fl (35.1-43.9); Red Blood Count 4.78 M/mm3 (4.2-5.4); White Blood Count 8.6 K/mm3 (4.4-11.0)
[2020-12-04 15:39] LABS: ALB/GLOB Ratio 0.9 RATIO (0.9-2.4); AST(SGOT) 16 U/L (15-37); Alanine Aminotransfer ALT/SGPT 30 U/L (13-56); Albumin, Serum 3.7 g/dL (3.2-5.0); Alkaline Phosphatase 103 U/L (45-117); Anion Gap 9 (5-15); BUN 20 mg/dL (7-18); BUN/Creat Ratio 19.6 RATIO (10-20); Calcium,Total 9.5 mg/dL (8.5-10.1); Chloride 98 mmol/L (98-107); Creatinine, Serum 1.02 mg/dL (0.55-1.02); EST Glomerular Filtration Rate 58 mL/min (>60); Est Glom Filt Rate - Afr Amer 70 mL/min (>60); Globulin 4.1 g/dL (2.2-4.2); Glucose 86 mg/dL (74-106); Potassium 3.3 mmol/L (3.5-5.1); Protein, Total 7.8 g/dL (6.4-8.2); Sodium Level 137 mmol/L (136-145)
== END ==
PROVIDERS: PCP Internal Medicine; Referring Provider Internal Medicine; Visit Provider Internal Medicine
DX: I10 Essential (primary) hypertension (principal)
CPT/HCPCS: 36415; 80053; 85025

== ENCOUNTER → 2020-12-19 12:18 | Outpatient (CLI) | payer MEDICARE, SELFPAY ==
--- NOTE | 2020-12-19 12:21 | BI_ITS ---
MAMMOGRAPHY - BILATERAL SCREENING REASON FOR EXAM: Female, 65 years old. Routine annual screening examination. PERTINENT HISTORY: Mother with breast cancer. Aunts with breast cancer. Remote right breast biopsy. TECHNIQUE: Digital bilateral breast missy (3D mammographic acquisition) in the CC and MLO projections. 2-D mediolateral oblique (MLO) and craniocaudad (CC) views of both breasts were obtained. CAD: Full Field Digital Mammography with Computer Added Detection was performed. COMPARISON: Comparison is made with prior examination dated 08/23/2019 and 12/07/2018. FINDINGS: Breast Composition: There are scattered areas of fibroglandular density. There are no dominant masses or suspicious calcifications. No other significant abnormalities are identified. There has been no significant change since the prior study. BI/SCRN MAMM (CAD)W/MISSY BILAT IMPRESSION: Stable bilateral screening mammogram. Yearly follow-up mammogram recommended. (A) ASSESSMENT CATEGORY: BIRADS Category 1: Negative. A letter regarding these results will be sent to the patient by the facility within 30 days. Approximately 10% of breast cancers are not detected by mammography. A normal mammogram should not delay biopsy of a clinically suspicious abnormality. [id number] Electronically Signed: Alexandro Peña MD at 14:49 EDT , Service support ,
== END ==
PROVIDERS: PCP Internal Medicine; Referring Provider Surgery; Visit Provider Surgery
DX: Z12.31 Encounter for screening mammogram for malignant neoplasm of breast (principal); Z80.3 Family history of malignant neoplasm of breast
CPT/HCPCS: 77063; 77067

== ENCOUNTER → 2021-12-21 | Outpatient (CLI) | payer MEDICARE, SELFPAY ==
[2021-12-21 09:09] LABS: Bacteria 0 SEEN /hpf (None Seen); Mucous, Urine 0 SEEN /hpf (<or=2+); Red Blood Cells-Urine 0 SEEN /hpf (0-5); White Blood Cells 0 SEEN /hpf (0-5)
[2021-12-21 12:26] LABS: Absolute Lymphocyte Count 1.45 X10^3/uL (0.83-4.51); Absolute Neutrophil Count 5.6 X10^3/uL (2.0-7.7); Basophil# 0.05 X10^3/uL; Basophil% 0.6 % (0-1); Eosinophil# 0.16 X10^3/uL; Eosinophils% 2.1 % (0-5); Hematocrit 40.3 % (37-47); Hemoglobin 13.2 g/dL (12.0-15.0); Lymphocyte # 1.45 X10^3/ul (0.83-4.51); Lymphocyte % 18.8 % (19-41); Mean Corp Hgb Conc 32.8 g/dL (32-36); Mean Corpuscular Hgb 28.4 pg (27.0-32.0); Mean Corpuscular Volume 86.7 fL (81-99); Mean Platelet Vol. 9.9 fl (6.2-12.0); Monocyte# 0.41 X10^3/uL; Monocyte% 5.3 % (0-10); NRBC Flagged by Analyzer 0 % (0-5); Neutrophil # 5.63 X10^3/uL (2.7-7.7); Neutrophil % 73.1 % (47-70); Platelet Count 347 K/mm3 (150-450); RBC Distribution Width CV 13.4 % (11.6-14.6); RBC Distribution Width SD 41.9 fl (35.1-43.9); Red Blood Count 4.65 M/mm3 (4.2-5.4); White Blood Count 7.7 K/mm3 (4.4-11.0)
[2021-12-21 12:51] LABS: Color, Urine Yellow (Yellow); Glucose, Dipstick Normal (Normal); Ketone-Dipstick Negative (Negative); Leukocyte Esterase-Dipstick Negative /ul (Negative); Nitrite-Dipstick Negative (Negative); Occult Blood-Urine Negative /ul (Negative); Protein-Dipstick Negative (Negative); Specific Gravity, Urine 1.005 (1.002-1.030); Urine Bilirubin Dipstick Negative (Negative); Urine Clarity Clear (Clear); Urine Urobilinogen Normal (Normal)
[2021-12-21 12:57] LABS: Squamous Epithelial Cells - UA 0-5 SEEN /hpf (5-10)
[2021-12-21 12:59] LABS: ALB/GLOB Ratio 1.1 RATIO (0.9-2.4); AST(SGOT) 20 U/L (15-37); Alanine Aminotransfer ALT/SGPT 26 U/L (13-56); Albumin, Serum 3.9 g/dL (3.2-5.0); Alkaline Phosphatase 101 U/L (45-117); Anion Gap 7 (5-15); BUN 23 mg/dL (7-18); BUN/Creat Ratio 23.4 RATIO (10-20); Calcium,Total 9.6 mg/dL (8.5-10.1); Chloride 99 mmol/L (98-107); Cholesterol 180 mg/dL (200); Creatinine, Serum 0.98 mg/dL (0.55-1.02); EST Glomerular Filtration Rate 60 mL/min (>60); Est Glom Filt Rate - Afr Amer 72 mL/min (>60); Globulin 3.6 g/dL (2.2-4.2); Glucose 94 mg/dL (74-106); High Density Lipoprotein 72 mg/dL; Potassium 3.4 mmol/L (3.5-5.1); Protein, Total 7.5 g/dL (6.4-8.2); Sodium Level 134 mmol/L (136-145); Triglycerides 60 mg/dL; Very Low Density Lipoprotein 12 mg/dL (5-40)
== END | disposition home or self-care (01) ==
LOC: BIMLAB 08:43
PROVIDERS: PCP Internal Medicine; Referring Provider Internal Medicine; Visit Provider Internal Medicine
DX: I10 Essential (primary) hypertension (principal); R31.9 Hematuria, unspecified
CPT/HCPCS: 36415; 80053; 80061; 81001; 85025

== ENCOUNTER → 2022-02-07 | Outpatient (CLI) | payer MEDICARE, SELFPAY ==
--- NOTE | 2022-02-07 13:23 | BI_ITS ---
MAMMOGRAPHY - BILATERAL SCREENING REASON FOR EXAM: Female, 67 years old. Routine annual screening examination. PERTINENT HISTORY: Mother with breast cancer. Grandmother with breast cancer. Aunts with breast cancer. TECHNIQUE: Digital bilateral breast missy (3D mammographic acquisition) in the CC and MLO projections. 2-D mediolateral oblique (MLO) and craniocaudad (CC) views of both breasts were obtained. CAD: Full Field Digital Mammography with Computer Added Detection was performed. COMPARISON: Comparison is made with prior examination 12/19/2020 and 08/23/2019. FINDINGS: Breast Composition: There are scattered areas of fibroglandular density. There are no dominant masses or suspicious calcifications. No other significant abnormalities are identified. There has been no significant change since the prior study. BI/SCRN MAMM (CAD)W/MISSY BILAT IMPRESSION: Stable bilateral screening mammogram. Yearly follow-up mammogram recommended. (A) ASSESSMENT CATEGORY: BIRADS Category 1: Negative. A letter regarding these results will be sent to the patient by the facility within 30 days. Approximately 10% of breast cancers are not detected by mammography. A normal mammogram should not delay biopsy of a clinically suspicious abnormality. [id number] Electronically Signed: Alexandro Peña MD at 14:30 EST ,
== END | disposition home or self-care (01) ==
LOC: OPBD 13:23
PROVIDERS: PCP Internal Medicine; Referring Provider Internal Medicine; Visit Provider Internal Medicine
DX: Z12.31 Encounter for screening mammogram for malignant neoplasm of breast (principal); Z80.3 Family history of malignant neoplasm of breast; M81.0 Age-related osteoporosis without current pathological fracture
CPT/HCPCS: 77063; 77067

== ENCOUNTER → 2022-02-12 | Outpatient (CLI) | payer MEDICARE, SELFPAY ==
--- NOTE | 2022-02-12 15:38 | RAD_ITS ---
STUDY: X-RAY - RIGHT FOOT CLINICAL: Female, 67 years old. lateral foot, heel pain TECHNIQUE: 3 view(s) of the foot. COMPARISON: None. FINDINGS: Normal talus, calcaneus, and tarsal bones. Moderate plantar heel spur. Normal visualized subtalar, talonavicular, calcaneocuboid, tarsal and tarsometatarsal articulations. Status post remote bunionectomy first metatarsal head. Normal metatarsophalangeal joint of the great toe. Normal tibial and fibular sesamoid bones. Normal interphalangeal joint of the great toe. Normal phalanges of the great toe. Normal second through fifth metatarsophalangeal joints. Normal interphalangeal joints and phalanges of the lesser toes. The soft tissue structures are unremarkable. RAD/Foot min 3 Views IMPRESSION: Moderate plantar heel spur otherwise No acute disease Electronically Signed: Eriberto Cassidy MD at 23:50 EST ,
== END | disposition home or self-care (01) ==
LOC: RAD 15:14
PROVIDERS: PCP Internal Medicine; Visit Provider Physician Assistant
DX: M79.671 Pain in right foot (principal); M79.673 Pain in unspecified foot
CPT/HCPCS: 73630

== ENCOUNTER → 2023-03-25 | Outpatient (CLI) | payer MEDICARE, SELFPAY ==
--- NOTE | 2023-03-25 12:40 | RAD_ITS ---
INDICATION: RIGHT KNEE PAIN EXAMINATION/TECHNIQUE: X-RAY - RIGHT XR Knee Complete 4 Views or More COMPARISON: None. FINDINGS: No acute fracture or malalignment. Moderate tricompartmental joint space narrowing and osteophytosis. No joint effusion. The soft tissues are unremarkable. RAD/Knee 4 or More Views IMPRESSION: No acute fracture or malalignment. Moderate tricompartmental degenerative arthrosis of the knee. Electronically Signed: Arnaud Paul MD at 0:04 EST ,
--- OUTSIDE RECORDS SUMMARY | 2023-03-25 12:54 | XMS RPT_ITS | CCD ---
Author Name Unknown Address [address] [place] [address] Organization [facility] Care Team Providers Care Forming Operator Name Role Phone Donavon URIBE, Denise Meza Primary Care Provider [phone] Allergies Allergy Classification Reported Allergen(s) Allergy Type Date of Onset Reaction(s) Facility (1 source) Amoxicillin / Clavulanate Drug Allergy 06-21-2013 GI Upset [facility] Work Phone: (1 source) traMADol Drug Allergy 12-15-2014 Other: See Comments [facility] Medications Current Medications Medication Drug Class(es) Dates Sig (Normalized) Sig (Original) cephalexin 500 mg oral capsule (1 source) Cephalosporin Antibacterial Start: 10-15-2021 End: 10-22-2021 take 1 capsule by mouth twice daily cephALEXin (KEFLEX) 500 mg capsule Take 1 capsule by mouth twice daily for 7 days. 14 capsule 0 10/15/2021 10/22/2021 Active Completed/Discontinued Medications Medication Drug Class(es) Dates Sig (Normalized) Sig (Original) Chromium (1 source) Standardized Chemical Allergen take 1 capsule by mouth once daily Chromium 200 mcg cap Take by mouth once daily. 0 Active Problems Problem Classification Problem Date Documented Da te Episodic/Chronic Abdominal hernia (2 sources) Hiatal hernia; Translations: [Diaphragmatic hernia without obstruction or gangrene] Onset: 12-06-2009 12-06-2009 Episodic Genitourinary symptoms and ill-defined conditions (1 source) Dysuria; Translations: [Painful micturition, unspecified] Episodic Hemorrhoids (1 source) Hemorrhoids; Translations: [Unspecified hemorrhoids] 12-06-2009 Episodic Thyroid disorders (1 source) Multinodular goiter; Translations: [Nontoxic multinodular goiter] Onset: 10-05-2012 10-05-2012 Chronic Results Test Name Value Interpretation Reference Range Facil ity Vital Signs Date Time Vital Sign Value Performing Clinician Trell tena 10-15-2021 13:47-0400 Body temperature 97.11 [degF] Po Cornejo BOOT AND SHOE REPAIRMAN.IMAGE EDITOR Work Phone: [facility] 10-15-2021 13:47-0400 Body weight 80.65 kg Po Cornejo BOOT AND SHOE REPAIRMAN.IMAGE EDITOR Work Phone: [facility] 10-15-2021 13:47-0400 Diastolic blood pressure 86 mm[Hg] Po Cornejo BOOT AND SHOE REPAIRMAN.IMAGE EDITOR Work Phone: [facility] 10-15-2021 13:47-0400 Heart rate 82 /min Po Cornejo BOOT AND SHOE REPAIRMAN.IMAGE EDITOR Work Phone: [facility] 10-15-2021 13:47-0400 Respiratory rate 21 /min Po Cornejo BOOT AND SHOE REPAIRMAN.IMAGE EDITOR Work Phone: [facility] 10-15-2021 13:47-0400 SaO2% (BldA) [Mass fraction] 97 % Po Cornejo BOOT AND SHOE REPAIRMAN.IMAGE EDITOR Work Phone: [facility] 10-15-2021 13:47-0400 Systolic blood pressure 138 mm[Hg] Po Cornejo BOOT AND SHOE REPAIRMAN.IMAGE EDITOR Work Phone: [facility] Encounters Encounter Date Encounter Type Care Provider Facility Start: 10-15-2021 End: 10-15-2021 Patient encounter procedure Po Cornejo BOOT AND SHOE REPAIRMAN.IMAGE EDITOR Work Phone: [facility] Procedures Date Procedure Procedure Detail Performing Clinician Start: 10-15-2021 Urnls dip stick/tabl et rgnt auto w/o microscopy Lexi Clarke BOOT AND SHOE REPAIRMAN.IMAGE EDITOR Work Phone: Start: 01-17-2010 Colonoscopy Po sevilla BOOT AND SHOE REPAIRMAN.IMAGE EDITOR Work Phone: Plan of Treatment Date Care Activity Detail Author Start: 11-01-2021 Influenza vaccination INFLUENZA (#1) [facility] Start: 03-03-2021 ADVANCE DIRECTIVE DISCUSSION ADVANCE DIRECTIVE DISCUSSION [facility] Start: 01-18-2020 Colonoscopy COLONOSCOPY [facility] Start: 01-18-2020 COLORECTAL CANCER SCREENING COLORECTAL CANCER SCREENING [facility] Start: 2019 BONE DENSITY BONE DENSITY [facility] Start: 2019 PNEUMOCOCCAL: 65+ (1 - PCV) PNEUMOCOCCAL: 65+ (1 - PCV) [facility] Start: 02-01-2004 SHINGRIX VACCINE (1 of 2) SHINGRIX VACCINE (1 of 2) [facility] Start: 1999 COLOGUARD (FIT-DNA) COLOGUARD (FIT-DNA) [facility] Start: [address] COLONOGRAPHY [facility] Start: 1999 DIABETES SCREEN DIABETES SCREEN [facility] Start: 1999 FECAL OCCULT BLOOD FECAL OCCULT BLOOD [facility] Start: 1999 LIPID SCREEN LIPID SCREEN [facility] Start: 1999 SIGMOIDOSCOPY SIGMOIDOSCOPY [facility] Start: 1994 Mammography MAMMOGRAM [facility] Start: 1973 Urine microalbumin profile DTAP,TDAP,TD (1 - Tdap) [facility] Start: 02-01-1972 HEPATITIS C SCREENING HEPATITIS C SCREENING [facility] Start: 1966 Adult depression screening assessment DEPRESSION SCREENING [facility] Bacteria identified in Urine by Culture URINE CULTURE Microbiology Routine Painful urination Ordered: 10/15/2021 [facility] Work Phone: Payers Date Payer Category Payer Unknown ANTHEM BLUE CROS S AND BLUE SHIELD ANTHEM MEDIBLUE O [id number] 2021-Present [phone] [address] [place] [address] O 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 Author Type: Nurse Practitioner Type: Progress Notes Filed: 10/15/2021 2:13 PM Note Text: Subjective HPI A nontoxic appearing female presents to urgent care with chief complaint of possible UTI. Duration of symptoms 1 day. Associated symptoms dysuria, frequency, and urgency. Patient has history of UTIs in past with similar signs and symptoms. Patient denies the use of any zvgx-oej-kyqbxec medications or home remedies for symptom management. Patient states pain is a 2/10. Patient denies any fevers, flank pain, abdominal pain, nausea, vomiting, vaginal discharge, or urological abnormalities. Past medical history prescription medication use allergies reviewed .Patient presents with: UTI: Painful urination x 1 day PAST MEDICAL HISTORY Diagnosis Date Diaphragmatic hernia without mention of obstruction or gangrene 12/06/2009 Diaphragmatic hernia without mention of obstruction or gangrene 12/06/2009 External hemorrhoids without mention of complication Hiatal hernia Internal hemorrhoids without mention of complication Meniere's disease Pain in joint Unspecified hemorrhoids with other complication PAST SURGICAL HISTORY Procedure Laterality Date BUNIONECTOMY, LAPIDUS-TYPE 2000 right foot surgery CHOLECYSTECTOMY 1999 Cholecystectomy COLONOSCOPY FLX DX W/COLLJ SPEC WHEN PFRMD 09/05/99 Colonoscopy COLONOSCOPY FLX DX W/COLLJ SPEC WHEN PFRMD 01/17/10 FNA WITH IMAGING 10/21/12 U/S FNA left thyroid nodule FNA WITH IMAGING Right 12/28/14 U/S FNA right thyroid nodule LAPS ABD PRTMANDOMENTUM DX W/WO SPEC BR/WA SPX 1979 Laparoscopy PAST SURGICAL HISTORY OF polyp removed from cervix PAST SURGICAL HISTORY OF 2009 rotator cuff right SALPINGO-OOPHORECTOMY COMPL/PRTL UNI/BI SPX 79 TOTAL ABDOMINAL HYSTERECT W/WO RMVL TUBE OVARY 06/19/06 Hysterectomy, EILEEN ALLERGIES Augmentin [Amoxicillin-Pot Clavulanate] and Tramadol MEDICATIONS latanoprost (XALATAN) 0.005 % ophthalmic solution 1 Drop daily at bedtime. codeine-guaiFENesin 10-100 mg/5 mL syrp Take 5 mL by mouth every 6 hours as needed (Cough). meclizine 25 mg Tab Take 25 mg by mouth three times daily. TRIAMTERENE-HYDROCHLOROTHIAZIDE 37.5-25 mg per capsule Take 1 capsule by mouth once daily. Chromium 200 mcg cap Take by mouth once daily. VITAMIN B COMPLEX (B COMPLEX 1 ORAL) Take by mouth once daily. ranitidine (ZANTAC) 150 mg ORAL Tab Take one(1) tablet daily. diazepam (VALIUM) 2 mg ORAL Tab as needed estradiol 2 mg ORAL tablet Take one(1) tablet daily. ibuprofen (ADVIL) 200 mg ORAL Tab Take one(1) to two(2) tablets every 4 hours as needed for pain. FAMILY HISTORY Problem Relation Age of Onset Breast Cancer Mother Diabetes Father Diabetes Brother Diabetes Mother Diabetes Maternal Grandmother Diabetes Paternal Grandmother Heart Father Heart Brother 45 Alcohol/Drug Father Alcohol/Drug Paternal Grandfather Social History Tobacco Use Smoking status: Never Passive exposure: Past Smokeless tobacco: Never Substance Use Topics Alcohol use: No BP 138/86 Pulse 82 Temp 36.2 ?C (97.1 ?F) Resp 21 Wt 80.6 kg (177 lb 12.8 oz) SpO2 97% BMI 34.15 kg/m? Review of Systems Constitutional: Negative for chills, fever and malaise/fatigue. HENT: Negative for congestion, ear discharge, ear pain, sinus pain and sore throat. Eyes: Negative for blurred vision, pain, discharge and redness. Respiratory: Negative for cough, hemoptysis, sputum production, shortness of breath, wheezing and stridor. Cardiovascular: Negative for chest pain. Gastrointestinal: Negative for abdominal pain, diarrhea, nausea and vomiting. Genitourinary: Positive for dysuria, frequency and urgency. Negative for flank pain and hematuria. Musculoskeletal: Negative for myalgias. Skin: Negative for itching and rash. Neurological: Negative for dizziness and headaches. Objective Physical Exam Constitutional: General: She is not in acute distress. Appearance: She is not diaphoretic. HENT: Head: Normocephalic. Eyes: Conjunctiva/sclera: Conjunctivae normal. Pupils: Pupils are equal, round, and reactive to light. Cardiovascular: Rate and Rhythm: Normal rate and regular rhythm. Heart sounds: Normal heart sounds. Pulmonary: Effort: Pulmonary effort is normal. No tachypnea, accessory muscle usage or respiratory distress. Breath sounds: Normal breath sounds. No stridor. No wheezing, rhonchi or rales. Abdominal: Palpations: Abdomen is soft. Tenderness: There is no abdominal tenderness. There is no right CVA tenderness or left CVA tenderness. Musculoskeletal: Cervical back: Normal range of motion and neck supple. No rigidity or tenderness. Lymphadenopathy: Cervical: No cervical adenopathy. Skin: General: Skin is warm and dry. Neurological: Mental Status: She is alert and oriented to person, place, and time. ASSESSMENT/PLAN: (more content not included)... [facility] Instructions 10-15-2021 Patient Instructions Note Date & Type Note Facility 10-15-2021 Instructions Po Cornejo APRN.[facility] - 10/15/2021 2:13 PM EDT URINARY TRACT INFECTION GENERAL INFORMATION: A urinary tract infection (UTI) is an infection of the bladder or kidneys. A bladder infection, called cystitis, is the more common type. If the infection travels up to the kidneys, it is called pyelonephritis. This can be more serious. UTIs are a common problem in women. Having sexual relations can leave a woman more susceptible to developing a UTI, but it is not sexually transmitted like gonorrhea. Some women have a problem with recurrent UTIs. INSTRUCTIONS: 1. Your doctor prescribed an antibiotic to treat the UTI. Take exactly as directed. Be sure to take all the medication prescribed, even if your symptoms disappear. If you stop treatment early, the infection may not be fully treated and the symptoms could come back again. 2. Get plenty of rest. You may take acetaminophen for fever and aches. 3. Drink 6 to 8 glasses of fluids, especially water, every day. This helps wash out germs from your urinary tract. Cranberry juice or other sources of vitamin C are also good for you. 4. Urinate often, as soon as you feel the urge. Empty your bladder completely. Urinate before and after you have sex. 5. Always wipe from front to back after going to the bathroom. This pushes germs away from your bladder, rather than towards it. 6. Showers are better than baths, and you should wash the genital area daily. Avoid bubble bath or bath oils if you do take a bath. 7. Wear underwear and pantyhose with a cotton crotch. CONTACT YOUR DOCTOR: 1. You have a temperature over 102F (38.8C) after 48 hours on medication. 2. You notice blood in your urine. 3. Your symptoms don't improve in 2 days. 4. You develop nausea, vomiting, diarrhea, or a rash. 5. You develop new or unexplained symptoms. These may be related to the medication you are taking. 6. Your symptoms return after you finish treatment. RETURN TO THE EMERGENCY DEPARTMENT IF: You develop vomiting and can't keep your medication or fluids down. documented in this encounter [facility] History of Present illness Narrative 10-15-2021 Po Cornejo APRN.CNP - 10/15/2021 2:00 PM EDT Note Date & Type Note Facility 10-15-2021 History of Presen t illness Narrative Subjective HPI A nontoxic appearing female presents to urgent care with chief complaint of possible UTI. Duration of symptoms 1 day. Associated symptoms dysuria, frequency, and urgency. Patient has history of UTIs in past with similar signs and symptoms. Patient denies the use of any xlbb-oac-sulbxxl medications or home remedies for symptom management. Patient states pain is a 2/10. Patient denies any fevers, flank pain, abdominal pain, nausea, vomiting, vaginal discharge, or urological abnormalities. Past medical history prescription medication use allergies reviewed .Patient presents with: UTI: Painful urination x 1 day PAST MEDICAL HISTORY Diagnosis Date Diaphragmatic hernia without mention of obstruction or gangrene 12/06/2009 Diaphragmatic hernia without mention of obstruction or gangrene 12/06/2009 External hemorrhoids without mention of complication Hiatal hernia Internal hemorrhoids without mention of complication Meniere's disease Pain in joint Unspecified hemorrhoids with other complication PAST SURGICAL HISTORY Procedure Laterality Date BUNIONECTOMY, LAPIDUS-TYPE 2000 right foot surgery CHOLECYSTECTOMY 1999 Cholecystectomy COLONOSCOPY FLX DX W/COLLJ SPEC WHEN PFRMD 09/05/99 Colonoscopy COLONOSCOPY FLX DX W/COLLJ SPEC WHEN PFRMD 01/17/10 FNA WITH IMAGING 10/21/12 U/S FNA left thyroid nodule FNA WITH IMAGING Right 12/28/14 U/S FNA right thyroid nodule LAPS ABD PRTM&OMENTUM DX W/WO SPEC BR/WA SPX 1979 Laparoscopy PAST SURGICAL HISTORY OF polyp removed from cervix PAST SURGICAL HISTORY OF 2009 rotator cuff right SALPINGO-OOPHORECTOMY COMPL/PRTL UNI/BI SPX 79 TOTAL ABDOMINAL HYSTERECT W/WO RMVL TUBE OVARY 06/19/06 Hysterectomy, EILEEN ALLERGIES Augmentin [Amoxicillin-Pot Clavulanate] and Tramadol MEDICATIONS latanoprost (XALATAN) 0.005 % ophthalmic solution 1 Drop daily at bedtime. codeine-guaiFENesin 10-100 mg/5 mL syrp Take 5 mL by mouth every 6 hours as needed (Cough). meclizine 25 mg Tab Take 25 mg by mouth three times daily. TRIAMTERENE-HYDROCHLOROTHIAZIDE 37.5-25 mg per capsule Take 1 capsule by mouth once daily. Chromium 200 mcg cap Take by mouth once daily. VITAMIN B COMPLEX (B COMPLEX 1 ORAL) Take by mouth once daily. ranitidine (ZANTAC) 150 mg ORAL Tab Take one(1) tablet daily. diazepam (VALIUM) 2 mg ORAL Tab as needed estradiol 2 mg ORAL tablet Take one(1) tablet daily. ibuprofen (ADVIL) 200 mg ORAL Tab Take one(1) to two(2) tablets every 4 hours as needed for pain. FAMILY HISTORY Problem Relation Age of Onset Breast Cancer Mother Diabetes Father Diabetes Brother Diabetes Mother Diabetes Maternal Grandmother Diabetes Paternal Grandmother Heart Father Heart Brother 45 Alcohol/Drug Father Alcohol/Drug Paternal Grandfather Social History Tobacco Use Smoking status: Never Passive exposure: Past Smokeless tobacco: Never Substance Use Topics Alcohol use: No BP 138/86 Pulse 82 Temp 36.2 C (97.1 F) Resp 21 Wt 80.6 kg (177 lb 12.8 oz) SpO2 97% BMI 34.15 kg/m Review of Systems Constitutional: Negative for chills, fever and malaise/fatigue. HENT: Negative for congestion, ear discharge, ear pain, sinus pain and sore throat. Eyes: Negative for blurred vision, pain, discharge and redness. Respiratory: Negative for cough, hemoptysis, sputum production, shortness of breath, wheezing and stridor. Cardiovascular: Negative for chest pain. Gastrointestinal: Negative for abdominal pain, diarrhea, nausea and vomiting. Genitourinary: Positive for dysuria, frequency and urgency. Negative for flank pain and hematuria. Musculoskeletal: Negative for myalgias. Skin: Negative for itching and rash. Neurological: Negative for dizziness and headaches. Objective Physical Exam Constitutional: General: She is not in acute distress. Appearance: She is not diaphoretic. HENT: Head: Normocephalic. Eyes: Conjunctiva/sclera: Conjunctivae normal. Pupils: Pupils are equal, round, and reactive to light. Cardiovascular: Rate and Rhythm: Normal rate and regular rhythm. Heart sounds: Normal heart sounds. Pulmonary: Effort: Pulmonary effort is normal. No tachypnea, accessory muscle usage or respiratory distress. Breath sounds: Normal breath sounds. No stridor. No wheezing, rhonchi or rales. Abdominal: Palpations: Abdomen is soft. Tenderness: There is no abdominal tenderness. There is no right CVA tenderness or left CVA tenderness. Musculoskeletal: Cervical back: Normal range of motion and neck supple. No rigidity or tenderness. Lymphadenopathy: Cervical: No cervical adenopathy. Skin: General: Skin is warm and dry. Neurological: Mental Status: She is alert and oriented to person, place, and time. ASSESSMENT/PLAN: 1. Painful urination - ICD9: 788.1, ICD10: R30.9 - UA DIP, URINE (POC) - URINE CULTURE Blood noted on urine dip. With patient's previous history of UTIs we will start antibiotics today. Patient will be started on Keflex. We will follow-up with PCP for repeat urine dip in 10 days to ensure blood has resolved. Po Cornejo APRN.ALEJA documented in this encounter [facility] Evaluation note Note Date & Type Note Facility documented in this encounter [facility] Summary Purpose Family History No Family History Records Found Advance Directives No Advanced Directives Records Found Additional Source Comments Source Comments (unrecognize d section and content) In the event this informatio n is protected by the Federal Confidentiality of Alcohol and Drug Abuse Patient Records regulations: The Federal rules restrict any use of the information to criminally investigate or prosecute any alcohol or drug abuse patient.[facility] Reason for Visit (unrecogniz ed section and content) Care Teams (unrecognized sec tion and content) INFORMATION SOURCE (unrecogn ized section and content) FOR RECORDS PERTAINING TO PATIENTS WHO ARE OR HAVE BEEN ENROLLED IN A CHEMICAL DEPENDENCY/SUBSTANCEABUSE PROGRAM, SOME INFORMATION MAY BE OMITTED. This clinical summary was aggregated from multiple sources. Caution should be exercised in using it in the provision of clinical care. This summary normalizes information from multiple sources, and as a consequence, information in this document may materially change the coding, format and clinical context of patient data. In addition, data may be omitted in some cases. CLINICAL DECISIONS SHOULD BE BASED ON THE PRIMARY CLINICAL RECORDS. [facility] [employer] [facility]. provides no warranty or guarantee of the accuracy or completeness of information in this document.
== END | disposition home or self-care (01) ==
LOC: RAD 12:30
PROVIDERS: PCP Internal Medicine; Referring Provider Nurse Practitioner; Visit Provider Nurse Practitioner
DX: M25.561 Pain in right knee (principal)
CPT/HCPCS: 73564

== ENCOUNTER → 2023-03-26 | Outpatient (CLI) | payer MEDICARE, SELFPAY ==
--- NOTE | 2023-03-26 15:04 | BI_ITS ---
MAMMOGRAPHY - BILATERAL SCREENING REASON FOR EXAM: Female, 68 years old. Routine annual screening examination. PERTINENT HISTORY: Mother with breast cancer. Grandmother with breast cancer. Aunt with breast cancer. Prior right breast biopsy. TECHNIQUE: Digital bilateral breast missy (3D mammographic acquisition) in the CC and MLO projections. 2-D mediolateral oblique (MLO) and craniocaudad (CC) views of both breasts were obtained. CAD: Full Field Digital Mammography with Computer Added Detection was performed. COMPARISON: Comparison is made with prior study dated February 07, 2022 and December 19, 2020. FINDINGS: Breast Composition: There are scattered areas of fibroglandular density. There are no dominant masses or suspicious calcifications. No other significant abnormalities are identified. There has been no significant change since the prior study. BI/SCRN MAMM (CAD)W/MISSY BILAT IMPRESSION: Stable bilateral screening mammogram. Yearly follow-up mammogram recommended. (A) ASSESSMENT CATEGORY: BIRADS Category 1: Negative. A letter regarding these results will be sent to the patient by the facility within 30 days. Approximately 10% of breast cancers are not detected by mammography. A normal mammogram should not delay biopsy of a clinically suspicious abnormality. [id number] Electronically Signed: Alexandro Peña MD at 15:45 EST ,
--- OUTSIDE RECORDS SUMMARY | 2023-03-26 16:29 | XMS RPT_ITS | CCD ---
Author Name Unknown Address [address] [place] [address] Organization [facility] Care Team Providers Care Laborer Laboratory Name Role Phone Donavon URIBE, Denise Meza Primary Care Provider [phone] Allergies Allergy Classification Reported Allergen(s) Allergy Type Date of Onset Reaction(s) Facility (1 source) Amoxicillin / Clavulanate Drug Allergy 06-21-2013 GI Upset [facility] Work Phone: (1 source) traMADol Drug Allergy 12-15-2014 Other: See Comments [facility] Medications Current Medications Medication Drug Class(es) [...] 13:47-0400 Body temperature 97.11 [degF] Po Cornejo REFLECTOR DRILLER AND DEBURRER.NEPHROLOGY SOCIAL WORKER Work Phone: [facility] 10-15-2021 13:47-0400 Body weight 80.65 kg Po Cornejo REFLECTOR [employer]RI[employer]ER [employer] DEBURRER.NEPHROLOGY SOCIAL WORKER Work Phone: [facility] 10-15-2021 13:47-0400 Diastolic blood pressure 86 mm[Hg] Po Cornejo REFLECTOR DRILLER AND DEBURRER.NEPHROLOGY SOCIAL WORKER Work Phone: [facility] 10-15-2021 13:47-0400 Heart rate 82 /min Po Cornejo REFLECTOR DRILLER AND DEBURRER.NEPHROLOGY SOCIAL WORKER Work Phone: [facility] 10-15-2021 13:47-0400 Respiratory rate 21 /min Po Cornejo REFLECTOR [employer]RILLER [employer] DEBURRER.NEPHROLOGY SOCIAL WORKER Work Phone: [facility] 10-15-2021 13:47-0400 SaO2% (BldA) [Mass fraction] 97 % Po Cornejo REFLECTOR [employer]RILLER [employer] DEBURRER.NEPHROLOGY SOCIAL WORKER Work Phone: [facility] 10-15-2021 13:47-0400 Systolic blood pressure 138 mm[Hg] Po Cornejo REFLECTOR DRILLER AND DEBURRER.NEPHROLOGY SOCIAL WORKER Work Phone: [facility] Encounters Encounter Date Encounter Type Care Provider Facility Start: 10-15-2021 End: 10-15-2021 Patient encounter procedure Po Cornejo REFLECTOR [employer]BURRER.NEPHROLOGY SOCIAL WORKER Work Phone: [facility] Procedures Date Procedure Procedure Detail Performing Clinician Start: 10-15-2021 Urnls dip stick/tabl et rgnt auto w/o microscopy Lexi Clarke REFLECTOR [employer]BURRER.NEPHROLOGY SOCIAL WORKER Work Phone: Start: 01-17-2010 Colonoscopy Po sevilla REFLECTOR DRILLER AND DEBURRER.NEPHROLOGY SOCIAL WORKER Work Phone: Plan of Treatment Date Care Activity Detail Author Start: 11-01-2021 Influenza vaccination INFLUENZA (#1) [facility] Start: 03-03-2021 ADVANCE DIRECTIVE DISCUSSION ADVANCE DIRECTIVE DISCUSSION [facility] Start: 01-18-2020 Colonoscopy COLONOSCOPY [facility] Start: 01-18-2020 COLORECTAL CANCER SCREENING COLORECTAL CANCER SCREENING [facility] Start: 2019 BONE DENSITY BONE DENSITY [facility] Start: 2019 PNEUMOCOCCAL: 65+ (1 - PCV) PNEUMOCOCCAL: 65+ (1 - PCV) [facility] Start: 02-01-2004 SHINGRIX VACCINE (1 of 2) SHINGRIX VACCINE (1 of 2) [facility] Start: 1999 COLOGUARD (FIT-DNA) COLOGUARD (FIT-DNA) [facility] Start: [address] COLONOGRAPHY [facility] Start: 1999 DIABETES SCREEN DIABETES SCREEN [facility] Start: 1999 FECAL OCCULT BLOOD FECAL OCCULT BLOOD [facility] Start: 1999 LIPID SCREEN LIPID SCREEN [facility] Start: 1999 SIGMOIDOSCOPY SIGMOIDOSCOPY [facility] Start: 1994 Mammography MAMMOGRAM [facility] Start: 1973 Urine microalbumin profile DTAP,TDAP,TD (1 - Tdap) [facility] Start: 02-01-1972 HEPATITIS C SCREENING HEPATITIS C SCREENING [facility] Start: 1966 Adult depression screening assessment DEPRESSION SCREENING [facility] Bacteria identified in Urine by Culture URINE CULTURE Microbiology Routine Painful urination Ordered: 10/15/2021 [facility] Work Phone: Payers Date Payer Category Payer Unknown [employer] S [employer] BL[employer]M MEDIBLUE O [id number] 2021-Present [phone] [address] [place] [address] O [id number] Social History Date Type Detail Facility Start: 10-15-2021 Tobacco smoking stat us NHIS Never smoked tobacco [facility] History of tobacco use Passive smoker [facility] Start: 10-15-2021 Tobacco use and exposure Smoke less tobacco non-user [facility] Start: 10-15-2021 Alcohol intake Current non-dr dinker of alcohol (finding) [facility] Start: 1955 Sex Assigned At Not on file [facility] Progress note 10-15-2021 Note Date & Type Note Facility 10-15-2021 Note HNO ID: [id number] Author: Po Cornejo APRN.NEPHROLOGY SOCIAL WORKER Service: ? Author Type: Nurse Practitioner Type: Progress Notes Filed: 10/15/2021 2:13 PM Note Text: Subjective HPI A nontoxic appearing female presents to urgent care with chief complaint of possible UTI. Duration of symptoms 1 day. Associated symptoms dysuria, frequency, and urgency. Patient has history of UTIs in past with similar signs and symptoms. Patient denies the use of any ybnv-flz-dsddymh medications or home remedies for symptom management. [...] and time. ASSESSMENT/PLAN: (more content not included)... [facility] Instructions 10-15-2021 Patient Instructions Note Date & Type Note Facility 10-15-2021 Instructions Po Cornejo APRN.[facility] - 10/15/2021 2:13 PM EDT URINARY [...] or fluids down. documented in this encounter [facility] History of Present illness Narrative 10-15-2021 [...] symptoms. Patient denies the use of any dyll-ykr-zihpllh medications or home remedies for symptom management. [...] Po Cornejo APRN.ALEJA documented in this encounter [facility] Evaluation note Note Date & Type Note Facility documented in this encounter [facility] Summary Purpose Family History No Family [...] or prosecute any alcohol or drug abuse patient.[facility] Reason for Visit (unrecogniz ed section [...] BE BASED ON THE PRIMARY CLINICAL RECORDS. [facility] provides no warranty or guarantee of the accuracy or completeness of information in this document.
== END | disposition home or self-care (01) ==
LOC: OPBI 15:04
PROVIDERS: PCP Internal Medicine; Referring Provider Nurse Practitioner; Visit Provider Nurse Practitioner
DX: Z12.31 Encounter for screening mammogram for malignant neoplasm of breast (principal); Z80.3 Family history of malignant neoplasm of breast
CPT/HCPCS: 77063; 77067

== ENCOUNTER → 2023-04-10 | Outpatient (CLI) | payer MEDICARE, SELFPAY ==
[2023-04-10 11:43] LABS: Mucous, Urine 0 SEEN /hpf (<or=2+); Red Blood Cells-Urine 0 SEEN /hpf (0-5); Squamous Epithelial Cells - UA 0 SEEN /hpf (5-10)
[2023-04-10 15:05] LABS: Absolute Neutrophil Count 5.1 X10^3/uL (2.0-7.7); Basophil# 0.04 X10^3/uL; Basophil% 0.5 % (0-1); Eosinophil# 0.25 X10^3/uL; Eosinophils% 3.4 % (0-5); Hemoglobin 12.7 g/dL (12.0-15.0); Lymphocyte % 20.5 % (19-41); Mean Corp Hgb Conc 31.8 g/dL (32-36); Mean Corpuscular Hgb 27.3 pg (27.0-32.0); Mean Corpuscular Volume 85.8 fL (81-99); Mean Platelet Vol. 9.8 fl (6.2-12.0); Monocyte# 0.41 X10^3/uL; Monocyte% 5.6 % (0-10); NRBC Flagged by Analyzer 0 % (0-5); Neutrophil # 5.11 X10^3/uL (2.7-7.7); Neutrophil % 69.7 % (47-70); Platelet Count 369 K/mm3 (150-450); RBC Distribution Width CV 13.7 % (11.6-14.6); RBC Distribution Width SD 42.5 fl (35.1-43.9); Red Blood Count 4.66 M/mm3 (4.2-5.4); White Blood Count 7.3 K/mm3 (4.4-11.0)
[2023-04-10 15:16] LABS: Color, Urine Yellow (Yellow); Glucose, Dipstick Normal (Normal); Ketone-Dipstick Negative (Negative); Leukocyte Esterase-Dipstick 25 /ul (Negative); Nitrite-Dipstick Positive (Negative); Occult Blood-Urine Negative /ul (Negative); Protein-Dipstick Negative (Negative); Urine Bilirubin Dipstick Negative (Negative); Urine Clarity Clear (Clear); Urine Urobilinogen Normal (Normal); Urine pH 6.5 (5.0 - 8.0)
[2023-04-10 15:29] LABS: ALB/GLOB Ratio 1.2 RATIO (0.9-2.4); AST(SGOT) 19 U/L (15-37); Alanine Aminotransfer ALT/SGPT 27 U/L (13-56); Albumin, Serum 4.1 g/dL (3.2-5.0); Alkaline Phosphatase 104 U/L (45-117); Anion Gap 7 (5-15); BUN 24 mg/dL (7-18); Calcium,Total 9.6 mg/dL (8.5-10.1); Chloride 98 mmol/L (98-107); Cholesterol 184 mg/dL (200); EST Glomerular Filtration Rate 58 mL/min (>60); Est Glom Filt Rate - Afr Amer 71 mL/min (>60); Globulin 3.5 g/dL (2.2-4.2); Glucose 75 mg/dL (74-106); High Density Lipoprotein 76 mg/dL; Potassium 3.6 mmol/L (3.5-5.1); Protein, Total 7.6 g/dL (6.4-8.2); Sodium Level 134 mmol/L (136-145); T4 Free Direct 1.24 ng/dL (0.76-1.46); Thyroid Stim Hormone (TSH) 1.26 uIU/mL (0.358-3.74); Triglycerides 68 mg/dL; Very Low Density Lipoprotein 14 mg/dL (5-40)
[2023-04-10 15:35] LABS: Bacteria 2+ /hpf (None Seen); White Blood Cells 0-5 SEEN /hpf (0-5)
== END | disposition home or self-care (01) ==
LOC: BIMLAB 11:39
PROVIDERS: Nurse Practitioner; PCP Internal Medicine; Visit Provider Internal Medicine
DX: R31.9 Hematuria, unspecified (principal); M25.561 Pain in right knee; R53.83 Other fatigue; G89.29 Other chronic pain; I10 Essential (primary) hypertension; E04.1 Nontoxic single thyroid nodule
CPT/HCPCS: 36415; 80053; 80061; 81001; 84439; 84443; 84482; 85025

== ENCOUNTER → 2024-06-08 | Outpatient (CLI) | payer MEDICARE, SELFPAY ==
--- NOTE | 2024-06-08 12:55 | BI_ITS ---
EXAM: SCRN MAMM (CAD)W/MISSY BILAT 06/08/2024 CLINICAL HISTORY: F, Age 69 y/o , SCRN MAMM (CAD)W/MISSY BILAT TECHNIQUE: Bilateral screening digital breast tomosynthesis with 2D and 3D images. Computer aided detection. COMPARISON: Prior exam(s) dated 03/26/2023, 02/07/2022. FINDINGS: TISSUE DENSITY: The breast tissue is composed of scattered area of fibroglandular density. Bilateral Breast Mammographic Findings: There is an asymmetry in the medial left breast at middle depth visualized on the CC view. No significant masses, calcifications or other abnormalities are identified in the right breast. BI/SCRN MAMM (CAD)W/MISSY BILAT IMPRESSION: The asymmetry in the medial left breast at middle depth visualized on the CC vi ew requires further evaluation. Recommend diagnostic mammogram of the left breast and ultrasound on the day of diagnostic if indicated. Right Breast: BIRADS 1 NEGATIVE. Left Breast: BIRADS 0 Incomplete: Need additional imaging evaluation and/or pr ior mammograms for comparison.. OVERALL FINAL ASSESSMENT: BIRADS 0 Incomplete: Need additional imaging evaluati on and/or prior mammograms for comparison.. RECOMMENDATION: Recommendation: Additional projections. A letter with findings and recommendations will be mailed to the patient. Reading Location: [id number]
--- NOTE | 2024-06-08 12:55 | BD_ITS ---
PROCEDURE: DEXA BONE DENSITY STUDY 06/08/2024 REASON FOR EXAM: None provided. TECHNIQUE: DXA scan of the lumbar spine and bilateral hips, using Hologic Horizon W. REFERENCE LINKS: ISCD Adult Positions COMPARISON: None FINDINGS: LUMBAR SPINE: Bone mineral denisty, L1-L4: 1.209 g/cm??? T-score: 1.5 LEFT FEMORAL NECK: Bone mineral denisty: 0.733 g/cm??? T-score: -1.0 LEFT TOTAL HIP: Bone mineral denisty: 0.889 g/cm??? T-score: -0.4 RIGHT FEMORAL NECK: Bone mineral denisty: 0.659 g/cm??? T-score: -1.7 RIGHT TOTAL HIP: Bone mineral denisty: 0.894 g/cm??? T-score: -0.4 FRAX*: 10 Year Probability of Fracture: Major Osteoporotic Fracture(1): 16.0% Hip Fracture(2): 3.8% *FRAX is a trademark of the [employer]'s [employer] [employer] Metabolic Bone Disease, World Health Organization (WHO) Collaborating [place]. 1-Major Osteoporotic Fracture: Clinical Spine, Forearm, Hip or Shoulder. 2-The 10-year probability of fracture may be lower than reported if the patient has received treatment. The National Osteoporosis Foundation recommends that medical therapy be considered in postmenopausal women and men, age 50 and older, with a: * hip or vertebral fracture * T-score less than or equal to -2.5 in the spine or hip * T-score between -1.0 and -2.5 and FRAX equal to or less than 3 percent for hip fracture or equal to or less than 20 percent for major osteoporotic fracture. World Health Organization criteria for BMD interpretation classify patients as Normal (T-score at or above -1.0), Osteopenic (T-score between -1.0 and -2.5), or Osteoporotic (T-score at or below -2.5). BD/Dexa Bone Density Study IMPRESSION: 1. Osteopenia. 2. No prior exams are available for comparison. 3. Additional description as above. Reading Location: [id number]
== END | disposition home or self-care (01) ==
PROVIDERS: PCP Nurse Practitioner Family; Referring Provider Nurse Practitioner Family; Visit Provider Nurse Practitioner Family
DX: Z12.31 Encounter for screening mammogram for malignant neoplasm of breast (principal); Z78.0 Asymptomatic menopausal state
CPT/HCPCS: 77063; 77067; 77080

== ENCOUNTER → 2024-06-17 | Outpatient (CLI) | payer MEDICARE, SELFPAY ==
--- NOTE | 2024-06-17 09:23 | US_ITS ---
PROCEDURE: BREAST COMPLETE UNILATERAL 06/17/2024 REASON FOR EXAM: F, Age 69 y/o , ASYMMETRY MEDIAL LEFT BREAST COMPARISON: Prior mammogram done earlier in the day. TECHNIQUE: Bilateral diagnostic digital breast tomosynthesis with 2D and 3D images. Compression spot views were obtained. Computer aided detection. Targeted left breast ultrasound. FINDINGS: MAMMOGRAM: TISSUE DENSITY: There are scattered areas of fibroglandular density. Suggests a small benign-appearing lymph node at the 6 o'clock position of the breast at 5 cm from the nipple. ULTRASOUND: Ultrasound was targeted to the lower half of the left breast. There is a 1.3 cm by 1 cm by 0.4 cm well-defined hypoechoic nodule with a central echogenic density suggestive of a benign-appearing lymph node. This is at the 6 o'clock position of the breast at 5 cm from the nipple. US/Breast Complete Unilateral IMPRESSION: Negative diagnostic mammogram. Sonographic BI-RADS 2: BENIGN RECOMMEND ANNUAL MAMMOGRAPHIC SCREENING. Reading [facility]
--- NOTE | 2024-06-17 09:23 | BI_ITS ---
PROCEDURE: DIAG MAMM W/CAD, UNILAT REASON FOR EXAM: F, Age 69 y/o , ABNORMAL MAMMOGRAM LEFT BREAST. CORRELATE WITH SCREENING MAMMO COMPARISON: Prior exam(s) dating back to mammogram dated June 08, 2024.. TECHNIQUE: Left diagnostic digital breast tomosynthesis with 2D and 3D images. Compression spot views were obtained as well. Computer aided detection. FINDINGS: TISSUE DENSITY: There are scattered areas of fibroglandular density. No abnormality is seen in the diagnostic views. Sonographic correlation recommended. BI/DIAG MAMM W/CAD, UNILAT IMPRESSION: No suspicious abnormality is seen. Sonographic correlation recommended. BI-RADS 0: INCOMPLETE - NEED ADDITIONAL IMAGING EVALUATION. Reading Location: [place] [id number]
== END | disposition home or self-care (01) ==
PROVIDERS: PCP Nurse Practitioner Family; Referring Provider Nurse Practitioner Family; Visit Provider Nurse Practitioner Family
DX: N64.89 Other specified disorders of breast (principal); R92.8 Other abnormal and inconclusive findings on diagnostic imaging of breast
CPT/HCPCS: 76641; 77065

== ENCOUNTER → 2024-12-07 | Outpatient (CLI) | payer MEDICARE, SELFPAY ==
[2024-12-07 15:01] LABS: Hematocrit 35.6 % (37-47); Hemoglobin 12.0 g/dL (12.0-15.0); Mean Corp Hgb Conc 33.7 g/dL (32-36); Mean Corpuscular Volume 84.2 fL (81-99); Mean Platelet Vol. 9.6 fl (6.2-12.0); Platelet Count 328 K/mm3 (150-450); RBC Distribution Width CV 13.3 % (11.6-14.6); RBC Distribution Width SD 40.9 fl (35.1-43.9); Red Blood Count 4.23 M/mm3 (4.2-5.4); White Blood Count 8.6 K/mm3 (4.4-11.0)
[2024-12-07 15:50] LABS: AST(SGOT) 22 U/L (<=31); Alanine Aminotransfer ALT/SGPT 20 U/L (<=34); Albumin, Serum 4.1 g/dL (3.4-4.8); Alkaline Phosphatase 104 U/L (35-104); Anion Gap 11 (5-15); BUN 17 mg/dL (4-19); BUN/Creat Ratio 20.7 RATIO (10-20); Calcium,Total 9.9 mg/dL (7.6-11.0); Carbon Dioxide 25.1 mmol/L (21.0-32.0); Chloride 96 mmol/L (98-108); Cholesterol 162 mg/dL (<=200); Globulin 2.7 g/dL (2.2-4.2); Glucose 88 mg/dL (70-99); Low Density Lipoprotein Calc. 80 mg/dL; Potassium 3.6 mmol/L (3.3-5.1); Triglycerides 43 mg/dL; Very Low Density Lipoprotein 9 mg/dL (5-40); cholesterol:hdl ratio screen 2.20
[2024-12-07 15:58] LABS: Vitamin D,25 Hydroxy 33.7 ng/mL (30-100)
== END | disposition home or self-care (01) ==
LOC: MTLAB 13:24
PROVIDERS: PCP Nurse Practitioner Family; Referring Provider Nurse Practitioner Family; Visit Provider Nurse Practitioner Family
DX: I10 Essential (primary) hypertension (principal); K29.60 Other gastritis without bleeding; R11.0 Nausea; R19.7 Diarrhea, unspecified; M85.80 Other specified disorders of bone density and structure, unspecified site; E04.1 Nontoxic single thyroid nodule; Z13.220 Encounter for screening for lipoid disorders; Z79.890 Hormone replacement therapy
CPT/HCPCS: 36415; 80053; 80061; 82306; 84443; 85027